=== PATIENT | female | born 1940 | race Caucasian/White ===

== ENCOUNTER 2016-08-30 06:29 | Observation (INO) ==
[2016-08-30] MEDS ORDERED: *HR* Heparin 10,000 UNIT/10 ML VIAL ONE (07:17)
[2016-08-30] MEDS ORDERED: Nitroglycerin 1,000 MCG/10 ML VIAL IV ONE (07:17)
[2016-08-30] MEDS ORDERED: Heparin 1,000 UNITS/500 mL NS 500 ML ONE (07:17)
[2016-08-30] MEDS ORDERED: Verapamil 5 MG/2 ML VIAL ONE (07:17)
[2016-08-30] MEDS ORDERED: 0.9 % Sodium Chloride 1,000 ML ONE (07:17)
[2016-08-30] MEDS: 0.9 % Sodium Chloride 1,000 ML IVC SCH ×2 (07:26→21:40)
[2016-08-30 07:30] LABS: INR 1.2; Prothrombin Time 12.7 Seconds (9.4-12.1)
[2016-08-30] MEDS ORDERED: *HR* Midazolam HCl 2 MG/2 ML VIAL ONE (08:13)
--- NOTE | 2016-08-30 08:22 | Pre-Sedation Evaluation ---
Pre-sedation evaluation - Pre-sedation checklist Date of procedure: 08/30/16 Procedure: [facility] Recent Vitals: Last Vital Signs Temp 98.1 F 08/30/16 06:48 Pulse 66 08/30/16 06:48 Resp 18 08/30/16 06:48 BP 191/82 08/30/16 06:48 Pulse Ox 96 08/30/16 06:48 H&P (including ROS) documented in medical record: Yes Previous reaction to sedatives/anesthetics: No Dietary Status: NPO after Midnight Dentition: No loose teeth or bridges ASA Classification *see protocol: CLASS II-Mild systemic disease Plan of Care: Pt appropriate candidate for procedure/moderate/conscious sedation , Risks/benefits of procedure/sedation discussed w/ patient/family
--- NOTE | 2016-08-30 08:28 | History & Physical Report ---
Date of Encounter: 08/30/16 Time of Encounter: 08:30 24 Hour HP Update - Instructions Instructions: If the History and Physical is less than 30 days old and was completed prior to A.M. admission and or procedure and has NOT been updated on calendar day of procedure please complete this update prior to performing procedure. - Update Patient reports changes in Medical Condition: No Changes in assessment/condition: No Changes in Medication: No Preop tests/diagnostics Reviewed: Yes Surgery Remains Indicated: Yes Consent for Planned Operative Procedure(s) Verified: Yes
[2016-08-30] MEDS ORDERED: *HR* Adenosine 6 MG/2 ML VIAL IVP ONE (08:43)
--- NOTE | 2016-08-30 09:23 | Invasive Diagnostic Lab Proc ---
Name: Seble Olvera Date of Study: 08/30/2016 Date: 1940 Ht: 60.0in Medical Record#: [id number] Age: 75 Wt: 139.33lb Gender: Female BSA: 1.6 Order #: [id number] BMI: 27.21 Physicians Procedure Physician: Chas Paredes MD, [facility] Referring MD: Abebe Cruz MD Referring MD: Staff Name Position Time In Juanita Mckeon RN Pre-Op Nurse Liv Romano RT (R) Recorder Leidy Govea RT (R) Scrub 08:22 AM Apryl Barker RN Lunchroom Monitor 08:22 AM Liv Romano RT (R) Monitor 08:22 AM Indications Indication Unstable Angina PAF Procedures Performed Procedure L HRT ARTERY/VENTRICLE ANGIO IV Doppler BLD Flow 1st Vessel Pre-Procedure Checklist Informed consent is complete signed and on chart. H\\T\\P is on chart. ID band is on and ID verified with patient. Patient NPO for procedure The procedure was described for the patient and questions were answered. Blood Pressure: 191/82 ECG is on chart. Rhythm: NSR Plan of Care Patient will tolerate the procedure without complications. Adequate level of comfort will be maintained. Hemodynamics will remain stable Patient will recover from procedure without complications. Respiratory function will be maintained. Cardiac rhythm will remain stable. Patient temperature will be maintained. Patient and/or family have verbalized understanding of the procedure. Patient Education Chief Complaint/Reason for Test: Cardiac Cath Developmental Category: Geriatric (65+ years) Developmentally Appropriate for Age: Yes Learning Barriers: None Education Needs: Procedure Education Method: Verbal Information Taught: Cardiac Cath Educational Evaluation: Able to repeat information Intravenous Access Time IV Size Location DC'd Fluid/Drip Rate Units RN 07:00 AM Started with 20g 1 1/4" Lt Antecubital 0.9NaCl 100 ml/hr Juanita Mckeon RN Allergies Opium (Anthroposophic) psuedoephedrine naproxen codeine Pseudoephedrine codiene opiods naprosyn pseuodophedrine Vital Signs Time BP (mmHg) HR (bpm) O2 Sat. RR (bpm) LOC 07:01 AM 191 / 82 66 97 % 20 5 = Fully awake and oriented or at pre-proc level 08:24 AM / % 5 = Fully awake and oriented or at pre-proc level 08:24 AM / % 4 = Oriented but drowsy 08:39 AM / % 4 = Oriented but drowsy 08:20 AM 165 / 98 70 100 % 08:25 AM 179 / 71 69 98 % 19 08:30 AM 181 / 71 72 99 % 29 08:35 AM 188 / 81 66 99 % 17 08:40 AM 164 / 77 71 99 % 18 08:45 AM 187 / 79 78 100 % 20 08:50 AM 144 / 90 86 98 % 22 08:55 AM 208 / 80 80 99 % 16 09:00 AM 189 / 74 93 99 % 17 09:05 AM 194 / 76 68 100 % 17 08:55 AM / % 4 = Oriented but drowsy Procedural Medications Time Medication Dose Units Method Given By 08:23 AM Oxygen 2 L/min nasal cannula Apryl Barker RN 08:23 AM Versed 2 mg Intravenous Apryl Barker RN 08:23 AM Fentanyl 50 mcg Intravenous Apryl Barker RN 08:30 AM Lidocaine 2% 0.5 ml Subcutaneous Chas Paredes MD, FACC 08:36 AM Lidocaine 2% 17 ml Subcutaneous Chas Paredes MD, FACC 08:47 AM Heparin 3000 units Intravenous Apryl Barker RN 08:55 AM Adenosine 400 mcg Intracoronary Chas Paredes MD, FACC 09:00 AM Hydralazine 10 mg Intravenous Apryl Barker RN ASA Classification: CLASS II- Mild systemic disease (i.e. well-controlled diabetes, hypertension, asthma, cigarette smoking) Capri Score Preprocedure Postprocedure Activity 2- Moves 4 extremities sustained head lift Activity 2- Moves 4 extremities sustained head lift Circulation 2- SBP +/= 20 points of pre-anesthetic level Circulation 2- SBP +/= 20 points of pre-anesthetic level Consciousness 2- Awake and alert oriented x 3 Consciousness 2- Awake and alert oriented x 3 O2 Saturation 2- Able to maintain O2 satruation of 92% on room air O2 Saturation 2- Able to maintain O2 satruation of 92% on room air Respiratory 2- Able to deep breathe and cough well Respiratory 2- Able to deep breathe and cough well Total Score 10 Total Score 10 Contrast Agent: Isovue Diagnostic Contrast: 59 ml Total Contrast: 59 ml Fluoro Dose: 5 mGy Activated Clotting Time Time Seconds to Clot 09:02 AM 271 Procedure Log Time Note Enter By 08:11 AM 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 tw 08:14 AM Procedure start 08:14 twilson 08:14 AM CathStat 08:19 AM Vitals capture started with the following parameters, Patient=Adult, Interval=5 min, Initial Delkfnbb=843 mmHg, Deflation Rate=5 mmHg, Cuff placed on Right Arm 08:20 AM HR=70 bpm, KIBO=713/98 mmhg, KmR3=012.0 %, Comment=NSR 08:22 AM Leidy Govea RT (R) Position: Scrub Time in: :22 08: AM Apryl Barker RN Position: Lunchroom Monitor Time in: :22 08:23 AM Liv Romano RT (R) Position: Monitor Time in: :22 :23 AM Patient charges- Angio tray pack, Navilyst 3mm J, Pulse Oximetry and ACIST tubing and transducer :23 AM IV Supplies used: J loop Angio Cath. :23 AM Hair removed from procedure site in holding area using clippers. Right wrist, right groin prepped with Chloraprep by Liv Romano RT (R) then patient draped. Skin intact. AM Time: 08:23 Oxygen on at 2 L/min per nasal cannula by Apryl Barker RN AM Time: 08:23 Versed 2 mg Intravenous Given by Apryl Barker RN [facility]23 AM Time: 08:23 Fentanyl 50 mcg Intravenous Given by Apryl Barker RN [facility]:24 AM ASA Class CLASS II- Mild systemic disease (i.e. well-controlled diabetes, hypertension, asthma, cigarette smoking) Time: 08:24 Patient comfortable and pain free: Yes 24 AM Time: 08:24LOC: 5 = Fully awake and oriented or at pre-proc level dsp:24 AM Clinical Presentation: Unstable angina dspell:25 AM Recorded ECG: HR=74 Condition=Condition 1 08:25 AM HR=69 bpm, HOZG=175/71 mmhg, SpO2=98.0 %, Resp=19 B/min, Comment=NSR 08:29 AM Pressure channel 1 zeroed. 08:29 AM Time out performed according to hospital policy dspell 08:30 AM HR=72 bpm, OPGB=232/71 mmhg, SpO2=99.0 %, Resp=29 B/min, Comment=NSR 08:30 AM Time: 08:30 0.5 ml Lidocaine 2% to right radial Subcutaneous Given by Chas Paredes MD, [facility] dspellman 08:32 AM Unsuccessful access attempt # 1 into the right Radial artery. Manual pressure applied to achieve hemostasis.. dspell 08:35 AM HR=66 bpm, RVWT=679/81 mmhg, SpO2=99.0 %, Resp=17 B/min, Comment=NSR 08:35 AM Unsuccessful access attempt # 2 into the right Radial artery. Manual pressure applied to achieve hemostasis.. dspell 08:36 AM Time: 08:36 17 ml Lidocaine 2% to right groin Subcutaneous Given by Chas Paredes MD, [facility] dspellman 08:37 AM Access obtained by percutaneous puncture. 5Fr 10cm Terum glide sheath placed in right Femoral artery. [id number] dspell 08:37 AM Micro-Introducer Kit utilized for sheath placement dspell 08:38 AM 5Fr FL 4 catheter inserted over the wire [facility] dspell 08:38 AM Recorded Pressure: Ao, HR=89, Condition=Condition 1 (Aorta) Ao 126/56/84 08:39 AM LCA angiography performed in multiple views. dspell 08:39 AM Recorded Pressure: Ao, HR=69, Condition=Condition 1 (Aorta) Ao 134/64/95 08:39 AM Time: 08:24 Patient comfortable and pain free: Yes dspellman 08:39 AM Time: 08:24LOC: 4 = Oriented but drowsy dspellman 08:39 AM Catheter removed dspell 08:40 AM 5Fr FR 4 catheter inserted over the wire [facility] dspellman 08:40 AM RCA angiography performed in multiple views. dspellman 08:40 AM Lesion found in Mid LAD. Pre Stenosis: 40 Pre SARAH Flow: dspellman 08:40 AM HR=71 bpm, QBZL=767/77 mmhg, SpO2=99.0 %, Resp=18 B/min, Comment=NSR 08:40 AM Lesion found in 1st Diagonal. Pre Stenosis: 70 Pre SARAH Flow: ell 08:41 AM Coronary Dominance: right dspell 08:41 AM Catheter removed dsp 08:41 AM 5Fr Pigtail catheter inserted over the wire [facility] 08:41 AM Catheter selectively placed in left ventricle dspell 08:41 AM Bolus angiogram of left Ventricle complete: 8 ml/sec for a total of 24 mls dspell 08:42 AM Pressure channel 1 zeroed. 08:42 AM Catheter removed dspell 08:43 AM Recorded Pressure: LV, HR=73, Condition=Condition 1 (Left Ventricle) LV 188/15/20 08:44 AM Recorded Pressure: LV, Ao, HR=79, Condition=Condition 1 (Left Ventricle) LV 172/12/14, (Aorta) Ao 170/52/108 08:45 AM [ Start FFR sample ] 08:45 AM HR=78 bpm, BMAP=889/79 mmhg, EpQ1=705.0 %, Resp=20 B/min, Comment=NSR 08:46 AM [ Start FFR sample ] 08:47 AM Pressure channel 3 zeroed. 08:47 AM Time: 08:47 Heparin 3000 units Intravenous Given by Apryl Barker RN Serrano pump dspell 08:48 AM 5Fr JR 4 Convey guide catheter was used to cannulate the PCI vessel successfully. reused? No dspell 08:48 AM Inflation device was opened. dspell 08:49 AM Pressure channel 3 equalization failed. 08:49 AM Pressure channel 3 equalized to channel 1. 08:49 AM Pressure channel 3 equalized to channel 1. 08:50 AM HR=86 bpm, LKKQ=559/90 mmhg, SpO2=98 %, Resp=22 B/min 08:50 AM [place] Prime Wire Prestige advanced to target lesion. dspellman 08:50 AM Pressure channel 3 equalization failed. 08:50 AM Pressure channel 3 equalization failed. 08:51 AM Pressure channel 3 equalized to channel 1. 08:53 AM Pressure channel 3 equalized to channel 1. 08:54 AM FFR: Value=0.87, Condition=Condition 1, Device=VOLCANO PRIME WIRE 08:54 AM Recorded Pressure: Ao, Wire, FFR=0.87, HR=96, Condition=Condition 1 (Aorta) Ao ?/?/?, (FFR Wire) Wire ?/?/? 08:55 AM Time: 08:39LOC: 4 = Oriented but drowsy dspell 08:55 AM Time: 08:39 Patient comfortable and pain free: Yes dspell 08:55 AM HR=80 bpm, EWII=660/80 mmhg, SpO2=99.0 %, Resp=16 B/min, Comment=NSR 08:56 AM Time: 08:55 Adenosine 400 mcg administered Intracoronary by Chas Paredes MD, [facility] dspell 08:56 AM FFR Measurement: 0.87 dspell 08:56 AM Flow Wire removed intact dspell 08:56 AM Procedure completed at 08:56 dspellman 08:58 AM Sign out completed: Radiation Dose 234.27 mGy Fluoro Time: 5.1 Isovue 370 - 200ml contrast 59 ml given by Chas Paredes MD, [facility]. Complications: NoneCardiac Rehab Consult needed: YesConfirmed administered medications: Yes dspell 08:58 AM Isovue 370 - 200ml,1 Bottle(s) used. dspell 08:58 AM Arterial sheath pulled, Mynx closure device used and was Successful [id number] S/N. dspell 08:58 AM Post ECG NSR dspell 08:59 AM Post Blood Pressure 208/80 dspellman 08:59 AM NIBP STAT measurement started. 08:59 AM 08:59 Post Pulses Bilateral DP \\T\\ PT 2+ dspell 08:59 AM 08:59 Post Pulses Rt Radial 2+ dspell 08:59 AM Information taught Cardiac Cath and Mynx dspell 09:00 AM HR=93 bpm, ENCV=660/74 mmhg, SpO2=99 %, Resp=17 B/min 09:01 AM Time: 09:00 Hydralazine 10 mg Intravenous Given by Apryl Barker RN 09:02 AM At 09:02 the ACT was 271 seconds. dspell 09:05 AM HR=68 bpm, YZRS=289/76 mmhg, AnS5=967.0 %, Resp=17 B/min, Comment=NSR 09:10 AM Lesion found in Proximal RCA. Pre Stenosis: 50 Pre SARAH Flow: dspell 09:10 AM Time: 08:55 Patient comfortable and pain free: Yes [facility]11 AM Time: 08:55LOC: 4 = Oriented but drowsy [place] 09:18 AM Patient out of room: 09:18 dspellman 09:18 AM Family placed in consult room. dspell 09:19 AM Complications: None [place] 09:19 AM Fluoro Time: 5.1 dspell 09:19 AM Isovue 370 - 200ml contrast 59 ml given by Chas Paredes MD, [facility]. [facility] 09:19 AM Radiation Dose 5.1 mGy [facility] Complications Complication None None Hemodynamics Pressures Site Systolic/A Wave Diastolic/V Wave Mean AO 126 56 84 AO 134 64 95 LV 188 15 20 LV 172 12 14 AO 170 52 108 AO Wire Post Procedure Information Blood Pressure: 208/80 mmHg Rhythm: NSR Post procedural instructions were given Closure Device Time Device Success/Fail 08/30/2016 9:08:00 AM MynxGrip Successful Site Checks Time Location Status Staff Sheath In? Note 09:17 AM Rt Groin No bleeding/ No Hematoma Leidy Govea RT (R) held pressure x 10 minutes, due to high BP Pulses Time Site Pre-Procedure Post-Procedure Note 08/30/2016 7:01:00 AM Bilateral DP \\T\\ PT 2+ 08/30/2016 7:01:00 AM Bilateral radial 2+ 8:59:00 AM Bilateral DP \\T\\ PT 2+ 8:59:00 AM Rt Radial 2+ Updated by Liv Romano RT (R) on 08/30/2016 9:19:38 AM Liv Romano RT electronically signed on 08/30/2016 9:20:18 AM with status of Final
[2016-08-30] MEDS ORDERED: *HR* FentaNYL (PF) 100 MCG/2 ML VIAL ONE (09:27)
[2016-08-30 10:54] LABS: Basophils % 0.2 %; Eosinophils # 0.1 K/mcL (0.0-0.6); Eosinophils % 2.3 %; Hematocrit 42.2 % (35.3-44.9); Hemoglobin 13.8 g/dL (11.5-15.4); Immature Granulocytes % 0.2 % (0-4); Lymphocytes # 1.2 K/mcL (0.6-4.6); Lymphocytes % 22.2 %; Mean Corpuscular HGB Conc 32.7 g/dL (31.6-35.5); Mean Corpuscular Hemoglobin 30.5 pg (28.0-33.3); Mean Corpuscular Volume 93.4 fL (83.0-100.0); Mean Platelet Volume 12.2 fL (9.4-12.4); Monocytes # 0.4 K/mcL (0.0-1.3); Neutrophils # 3.6 K/mcL (1.6-8.9); Platelet Count 140 K/mcL (140-400); Red Blood Count 4.52 M/mcL (3.82-4.97); Red Cell Distribution Width 12.8 % (11.5-14.5); Segmented Neutrophils % 67.1 %
[2016-08-30 11:05] LABS: BUN/Creatinine Ratio 13 (6-26); Blood Urea Nitrogen 11 mg/dL (7-20); Calcium 9.4 mg/dL (8.6-10.8); Carbon Dioxide 24 mEq/L (19-29); Chloride 105 mEq/L (98-109); Glucose 95 mg/dL (70-99); Osmolality,Calculated 289 (280-300); Potassium 3.7 mEq/L (3.5-4.5); Sodium 140 mEq/L (136-145); eGFR For African Americans > 60 (> 60); eGFR For Non-African Americans > 60 (> 60)
--- NOTE | 2016-08-30 11:16 | Event Note ---
Date of Encounter: 08/30/16 Time of Encounter: 11:11 - Cardiology Event Note Pt admitted for antiarrhythmic initiation for symptomatic PAF. [facility] today shows moderate CAD, nonobstructive without intervention. Creatinine clearance is 57. Discussed with EP, Dr. Jermain Mari, who recommends Sotalol 40mg [id number]. Will monitor renal function closely. EKGs 2 hours after each dose to monitor QTc < 500ms. Monitor for total of 5 doses. Current rhythm is sinus on tele. Anticoagulated on Coumadin, but was on hold for [facility]. INR today 1.2. Will resume Coumadin. Bridge with Lovenox until INR therapeutic for her PAF. If DCCV would be necessary, would require CASTRO since she had interruption in anticoagulation.
[2016-08-30] MEDS: Ipratropium 1 PUFF INHALER IH SCH ×3 (11:26→20:42)
--- NOTE | 2016-08-30 16:21 | Electrocardiograph Report ---
[facility] Test Date: 2016-08-30 Pat Name: Seble Olvera Department: 111 Room: 2NE23 Gender: F Manganese Wheeler: [facility] : 1940 Requested By: Mike Cohen Order Number: [id number] Reading MD: Faith Tejeda Measurements Intervals [place] Rate: 139 P: [place]: 0 QRS: 3 QRSD: 94 T: 244 QT: 254 QTc: 335 Interpretive Statements ATRIAL FIBRILLATION WITH RAPID VENTRICULAR RESPONSE ST DEVIATION AND MODERATE T-WAVE ABNORMALITY, CONSIDER ISCHEMIA Electronically Signed On 08-30-16 16:19:53 EST by Faith Tejeda
[2016-08-30] MEDS ORDERED: *HR* Warfarin 5 MG TABLET PO SCH (18:00)
[2016-08-30] MEDS ORDERED: Warfarin perPT PO PRN (18:00)
[2016-08-30] MEDS: *HR* Enoxaparin 60 MG/0.6 ML SYRINGE SQ SCH (18:43)
[2016-08-30] MEDS: Ranolazine 500 MG TAB.ER.12H PO SCH (21:38)
[2016-08-30] MEDS: Famotidine 20 MG TABLET PO SCH (21:38)
[2016-08-31] MEDS: Ipratropium 1 PUFF INHALER IH SCH ×4 (03:33→21:17)
[2016-08-31 05:50] LABS: Basophils % 0.5 %; Eosinophils # 0.1 K/mcL (0.0-0.6); Eosinophils % 1.7 %; Hematocrit 38.9 % (35.3-44.9); Hemoglobin 12.6 g/dL (11.5-15.4); Immature Granulocytes % 0.3 % (0-4); Lymphocytes # 1.5 K/mcL (0.6-4.6); Lymphocytes % 24.7 %; Mean Corpuscular HGB Conc 32.4 g/dL (31.6-35.5); Mean Corpuscular Hemoglobin 30.3 pg (28.0-33.3); Mean Corpuscular Volume 93.5 fL (83.0-100.0); Mean Platelet Volume 12.3 fL (9.4-12.4); Monocytes # 0.6 K/mcL (0.0-1.3); Monocytes % 10.2 %; Neutrophils # 3.7 K/mcL (1.6-8.9); Platelet Count 122 K/mcL (140-400); Red Blood Count 4.16 M/mcL (3.82-4.97); Red Cell Distribution Width 13.2 % (11.5-14.5); Segmented Neutrophils % 62.6 %
[2016-08-31 05:51] LABS: INR 1.2; Prothrombin Time 12.6 Seconds (9.4-12.1)
[2016-08-31] MEDS: *HR* Enoxaparin 60 MG/0.6 ML SYRINGE SQ SCH ×2 (06:12→17:51)
[2016-08-31 06:15] LABS: BUN/Creatinine Ratio 12 (6-26); Blood Urea Nitrogen 10 mg/dL (7-20); Calcium 8.9 mg/dL (8.6-10.8); Carbon Dioxide 21 mEq/L (19-29); Chloride 111 mEq/L (98-109); Glucose 96 mg/dL (70-99); Osmolality,Calculated 289 (280-300); Sodium 140 mEq/L (136-145); eGFR For African Americans > 60 (> 60); eGFR For Non-African Americans > 60 (> 60)
[2016-08-31] MEDS: Ranolazine 500 MG TAB.ER.12H PO SCH ×2 (08:30→20:41)
[2016-08-31] MEDS: Famotidine 20 MG TABLET PO SCH ×2 (08:30→20:41)
[2016-08-31] MEDS: Isosorbide MONOnitrate (24 HR) 30 MG TAB.ER.24H PO SCH (08:30)
[2016-08-31] MEDS: Lisinopril 20 MG TABLET PO SCH (08:30)
[2016-08-31] MEDS: 0.9 % Sodium Chloride 1,000 ML IVC SCH ×2 (08:31→18:50)
--- NOTE | 2016-08-31 10:36 | Cardiology Progress Note ---
Date of Encounter: 08/31/16 Time of Encounter: 10:34 Assessment and Plan (1) PAF (paroxysmal atrial fibrillation) Current Visit: Yes Status: Acute Sotalol inititation--40mg BID. Monitor for total of 5 doses with EKGs 2 hours after each dose. Baseline EKG 08/30/16 SR rate 88, QT/QTc 328/372 Shortly after baseline EKG went into A-Fib, EKG obtained showed QT/QTc 254/335 S/P 1st dose EKG SR 69 QT/QTc 396/414. 5th dose will be tomorrow AM. Will transition to 80mg daily at discharge-- renally dosing since creatinine clearance is usually <60. Anticipate discharge tomorrow. (2) Encounter for monitoring anti-arrhythmic therapy Current Visit: Yes Status: Acute Plan as above--Sotalol 40mg BID, transition to 80mg daily at D/C--renally dosing since creatinine clearance <60. (3) CAD (coronary artery disease) Current Visit: Yes Status: Acute Moderate CAD on LHC yesterday, no intervention necessary. ASA, Statin, BB, Imdur. Qualifiers: Coronary Disease-Associated Artery/Lesion type: [place] artery [place] vs. transplanted heart: [place] heart Associated angina: without angina Qualified Code(s): I25.10 - Atherosclerotic heart disease of [place] coronary artery without angina pectoris (4) Essential hypertension Current Visit: Yes Status: Acute Elevated with systolic pressure 180s this AM. Will add Norvasc. Continue Lisinopril. Discussion w patient/family: The assessment and plan as outlined above was discussed with the patient and/or family members who expressed understanding and agreement. All questions were answered. Thank you for involving us in the care of your patient. Please call with any questions. I will discuss all the above with Dr. Lowe and Dr. Jermain Mari and make changes as necessary. Subjective Principal diagnosis: PAF, moderate CAD Interval history: Pt had LHC yesterday--showed moderate vessel CAD. She was admitted for Sotalol initiation--40mg BID with plans to transition to 80mg daily at discharge. Needs decreased dosing due to creatinine clearance <60. Pt was in A-Fib briefly yesterday prior to starting Sotalol. Since starting Sotalol she has remained in SR. Renal function improved s/p LHC. She denies any complaints. QTc remains < 500ms. She has received 2 doses of Sotalol. Objective Vital Signs, Last 4 Hours Temp Pulse Resp BP Pulse Ox 08/31/16 08:37 95 08/31/16 07:35 98.8 F 58 16 182/74 95 Vital Signs Temp Pulse Resp BP Pulse Ox 08/31/16 08:37 95 08/31/16 07:35 98.8 F 58 16 182/74 95 08/31/16 05:00 98.7 F 62 16 180/67 94 L 08/31/16 03:33 14 96 08/31/16 01:00 98.6 F 62 16 153/53 96 08/30/16 21:45 98.0 F 79 16 165/66 97 08/30/16 20:42 16 96 08/30/16 16:22 15 97 08/30/16 16:06 98.3 F 61 15 145/67 96 08/30/16 11:30 15 164/68 97 08/30/16 11:06 98.3 F 88 15 164/68 97 Intake and Output 08/30/16 08/31/16 08/31/16 23:59 07:59 15:59 Intake Total 1440 / 1440 0 / 0 1500 / 1500 Output Total 1400 / 1400 Balance 40 / 40 0 / 0 1500 / 1500 Intake: IV Fluids 1000 / 1000 1000 / 1000 0.9 % Sodium Chloride 1, 1000 / 1000 1000 / 1000 000 ML @ 100 mls/hr IVC . Q10H CASSI Rx#:[id number] Oral 440 / 440 0 / 0 500 / 500 Output: Urine 1400 / 1400 Other: Meal Dinner Breakfast Percent of Meal Consumed 80% 100% # Voids 0 Weight 64.4 kg Patient Weight 08/31/16 23:59 Weight 64.4 kg General: Conversant, No Apparent Distress HEENT: Atraumatic, Normocephaly, Mucus Membranes Moist Neck: No JVD, Normal carotid pulses Cardiac: Reg Rate and Rhythm, Normal S1 and S2, No Murmur Lungs: Normal Breath Sounds, No Wheeze, Rales, Rhonchi Neuro: Alert and responsive, No focal deficits noted Abdomen: Soft, Non-Tender Skin: Other (left femoral access site healing well-no bleeding, hematoma or ecchymosis noted.) Musculoskeletal: No Chest Wall Tenderness Extremities: No Clubbing, No Cyanosis, No Edema, Normal Pulses Results 08/31/16 05:24 08/31/16 05:24 Lab Results 08/30/16 08/30/16 08/31/16 10:41 10:41 05:24 WBC 5.3 5.9 Hgb 13.8 12.6 Hct 42.2 38.9 Plt Count 140 122 L INR Sodium 140 Potassium 3.7 Chloride 105 Carbon Dioxide 24 BUN 11 Creatinine 0.87 Glucose 95 Calcium 9.4 08/31/16 08/31/16 05:24 05:24 WBC Hgb Hct Plt Count INR 1.2 Sodium 140 Potassium 4.0 Chloride 111 H Carbon Dioxide 21 BUN 10 Creatinine 0.81 Glucose 96 Calcium 8.9 Short CBC 08/31/16 08/30/16 Range/Units 05:24 10:41 WBC 5.9 5.3 (4.3-11.1) K/mcL Hgb 12.6 13.8 (11.5-15.4) g/dL Hct 38.9 42.2 (35.3-44.9) % Plt Count 122 L 140 (140-400) K/mcL Neutrophils # 3.7 3.6 (1.6-8.9) K/mcL BMP 08/31/16 08/30/16 Range/Units 05:24 10:41 Sodium 140 140 (136-145) mEq/L Potassium 4.0 3.7 (3.5-4.5) mEq/L Chloride 111 H 105 (98-109) mEq/L Carbon Dioxide 21 24 (19-29) mEq/L BUN 10 11 (7-20) mg/dL Creatinine 0.81 0.87 (0.57-1.11) mg/dL Glucose 96 95 (70-99) mg/dL Calcium 8.9 9.4 (8.6-10.8) mg/dL Active Medications Albuterol Sulfate (Albuterol Inhaler) 2 puff IH Q4HR PRN PRN Reason: Shortness Of Breath Stop: 03/01/17 10:55 Atorvastatin Calcium (Lipitor) 40 mg PO HS CASSI Stop: 03/01/17 21:01 Last Admin: 08/30/16 21:38 Dose: 40 mg Enoxaparin Sodium (Lovenox) 60 mg 1 mg/kg (60 mg) SQ Q12HR CASSI PRN Reason: Protocol Stop: 03/01/17 18:01 Last Admin: 08/31/16 06:12 Dose: 60 mg Famotidine (Pepcid) 10 mg PO BID CASSI PRN Reason: Protocol Stop: 03/01/17 21:01 Last Admin: 08/31/16 08:30 Dose: 10 mg Sodium Chloride (0.9 % Sodium Chloride) 1,000 mls @ 100 mls/hr IVC .Q10H CASSI Stop: 03/01/17 07:01 Last Admin: 08/31/16 08:31 Dose: 100 mls/hr Ipratropium [place] (Atrovent Inhaler) 2 puff IH [id number] [facility] Stop: 03/01/17 11:01 Last Admin: 08/31/16 03:33 Dose: 2 puff Isosorbide Mononitrate (Imdur) 30 mg PO DAILY [facility] Stop: 03/02/17 09:01 Last Admin: 08/31/16 08:30 Dose: 30 mg Lisinopril (Zestril) 40 mg PO DAILY [facility] Stop: 03/02/17 09:01 Last Admin: 08/31/16 08:30 Dose: 40 mg Ranolazine (Ranexa) 500 mg PO BID [facility] Stop: 03/01/17 21:01 Last Admin: 08/31/16 08:30 Dose: 500 mg Sotalol HCl (Betapace) 40 mg PO Q12H [facility] Stop: 03/01/17 11:31 Last Admin: 08/30/16 23:06 Dose: 40 mg Warfarin Sodium (Coumadin Perpt) 1 each PO DAILY@1800 PRN PRN Reason: SEE COMMENTS Stop: 03/01/17 18:01 Warfarin Sodium (Coumadin) 5 mg PO MOTH [facility] Stop: 03/01/17 18:01 Last Admin: 08/30/16 18:43 Dose: 5 mg Warfarin Sodium (Coumadin) 3.75 mg PO SUTUWEFRSA [facility] Stop: 03/02/17 18:01 - Imaging and Cardiology Cardiac cath: report reviewed - EKG Interpretation EKG results cardiology: other (12 hour tele AVG HR 63, SR.) - VTE Reasons for not Prescribing Prophylaxis: Not indicated-Anticoagulated or INR therapeutic Consult Discharge Plan - Plan Referrals: Abebe Cruz Jr, MD [Primary Care Provider] -
[2016-08-31] MEDS: amLODIPine 5 MG TABLET PO SCH (11:28)
[2016-08-31] MEDS ORDERED: *HR* Warfarin 2.5 MG TABLET PO SCH (18:00)
--- NOTE | 2016-08-31 21:08 | Electrocardiograph Report ---
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
--- NOTE | 2016-08-31 21:28 | Electrocardiograph Report ---
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
--- NOTE | 2016-08-31 21:32 | Electrocardiograph Report ---
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
[2016-09-01] MEDS: Ipratropium 1 PUFF INHALER IH SCH ×2 (03:47→10:27)
[2016-09-01] MEDS: *HR* Enoxaparin 60 MG/0.6 ML SYRINGE SQ SCH (05:20)
[2016-09-01] MEDS: 0.9 % Sodium Chloride 1,000 ML IVC SCH (05:21)
[2016-09-01 06:01] LABS: INR 1.2
[2016-09-01 06:16] LABS: BUN/Creatinine Ratio 13 (6-26); Blood Urea Nitrogen 11 mg/dL (7-20); Calcium 8.8 mg/dL (8.6-10.8); Carbon Dioxide 22 mEq/L (19-29); Chloride 110 mEq/L (98-109); Glucose 100 mg/dL (70-99); Osmolality,Calculated 295 (280-300); Potassium 3.8 mEq/L (3.5-4.5); Sodium 143 mEq/L (136-145); eGFR For African Americans > 60 (> 60); eGFR For Non-African Americans > 60 (> 60)
[2016-09-01] MEDS: Isosorbide MONOnitrate (24 HR) 30 MG TAB.ER.24H PO SCH (08:20)
[2016-09-01] MEDS: Famotidine 20 MG TABLET PO SCH (08:20)
[2016-09-01] MEDS: Ranolazine 500 MG TAB.ER.12H PO SCH (08:20)
[2016-09-01] MEDS: amLODIPine 5 MG TABLET PO SCH (08:20)
[2016-09-01] MEDS: Lisinopril 20 MG TABLET PO SCH (08:20)
[2016-09-01] MEDS ORDERED: Aspirin 81 MG TAB.CHEW PO SCH (09:00)
[2016-09-01] MEDS ORDERED: amLODIPine 5 MG TABLET PO ONE (09:49)
--- NOTE | 2016-09-01 09:53 | Discharge Summary ---
Date of Encounter: 09/01/16 Time of Encounter: 09:50 - Discharge Diagnosis (1) PAF (paroxysmal atrial fibrillation) Priority: Primary Status: Acute Comments: Sotalol inititation--40mg BID. Pt has been monitored for total of 5 doses with EKGs 2 hours after each dose. QTc has remained <500ms. She was started at a lower dose due to creatinine clearance being <60 in the past. She has maintained sinus rhythm on 40mg Sotalol BID without complaints or side effects. Renal function has actually improved while inpt and creatinine clearance now >60. Discussed with Dr. Jermain Mari. D/C home on Sotalol 40mg BID since she is maintaining SR. If she were to have recurrent PAF, could check renal function and if creatinine clearance continues to be >60, could increase Sotalol. If <60 , would need to switch to a different antiarrhythmic. Anticoagulated on Coumadin--INR 1.2. Coumadin was held prior to LHC and has since been resumed. Bridging not necessary at discharge since she is maintaining SR. Follow-up with [facility] as planned on Tuesday for further instructions. Pt being discharged home in stable condition. Follow-up with Dr. Paredes in 2-3 weeks. (2) Encounter for monitoring anti-arrhythmic therapy Priority: Primary Status: Acute Comments: Plan as above. (3) CAD (coronary artery disease) Priority: Secondary Status: Acute Comments: Moderate CAD on LHC, no intervention necessary. ASA, Statin, BB, Imdur. Qualifiers: Coronary Disease-Associated Artery/Lesion type: [place] artery [place] vs. transplanted heart: [place] heart Associated angina: without angina Qualified Code(s): I25.10 - Atherosclerotic heart disease of [place] coronary artery without angina pectoris (4) Essential hypertension Priority: Secondary Status: Acute Comments: Norvasc added during inpt stay due to pt being hypertensive. Continue Lisinopril. Pt instructed to keep BP log at home. - Discharge Medications Prescriptions: Amlodipine [Norvasc] 10 mg PO DAILY #30 tablet Aspirin 81 mg PO DAILY #30 tab.chew Sotalol [Betapace] 40 mg PO Q12H #30 tablet Home Medications: Albuterol Sulfate [Albuterol Inhaler] 2 puff IH Q4HR PRN 08/30/16 [History] Atorvastatin [Lipitor] 40 mg PO HS 08/30/16 [History] Carvedilol 6.25 mg PO DAILY 08/30/16 [History] Famotidine [Pepcid] 20 mg PO BID 08/30/16 [History] Ipratropium [ATROVENT Inhaler] 2 puff PO Q6H 08/30/16 [History] Isosorbide MONOnitrate (24 HR) [Imdur] 30 mg PO DAILY 08/30/16 [History] Lisinopril [Zestril] 40 mg PO DAILY 08/30/16 [History] Nitroglycerin 0.4 mg PO Q5M PRN 08/30/16 [History] Ranolazine [Ranexa] 500 mg PO BID 08/30/16 [History] Torsemide 5 mg PO BID 08/30/16 [History] Warfarin [Coumadin] 3.75 mg PO SUTUWEFRSA 08/30/16 [History] Warfarin [Coumadin] 5 mg PO MOTH 08/30/16 [History] Amlodipine [Norvasc] 10 mg PO DAILY #30 tablet 09/01/16 [Rx] Aspirin 81 mg PO DAILY #30 tab.chew 09/01/16 [Rx] Sotalol [Betapace] 40 mg PO Q12H #30 tablet 09/01/16 [Rx] Allergies/Adverse Reactions: Allergies codeine Allergy (Verified 08/30/16 07:09) See Comments *patient states vomiting, lip tingling, shortness of breath naproxen Allergy (Verified 08/30/16 07:09) See Comments *patient states vomiting, lip tingling, shortness of breath Opium (Anthroposophic) Allergy (Verified 08/30/16 07:09) See Comments *patient states vomiting, lip tingling, shortness of breath psuedoephedrine Allergy (Uncoded 08/30/16 07:09) See Comments *patient states vomiting, lip tingling, shortness of breath Procedures/tests Complete & Pending: Procedures Performed prior 72 hours Category Date Time Status CL Cardiac Catheterization [CL] Routine Rfid Manager 08/30/16 06:47 Ordered ECG 12 lead ECG [ECG] Routine Y 08/30/16 09:21 Completed ECG 12 lead ECG [ECG] Routine Y 08/30/16 14:20 Completed ECG 12 lead ECG [ECG] Routine Y 08/31/16 13:55 Completed EKG [ECG 12 lead ECG] [ECG] Routine Y 08/31/16 01:30 Completed EKG [ECG 12 lead ECG] [ECG] Stat Y 08/30/16 10:59 Completed Date of admission: 08/30/16 11:32 Primary care physician: Abebe Cruz Jr, MD Consults: 08/30/16 09:21 Consult to Cardiac Rehabilitation-Phase1 [CONS] Routine Comment: Reason for Consult: post op cath Call Completed: Yes Discharging clinician: Mike Cohen Anticipated date of discharge: 09/01/16 - Patient Status Disposition: Home, Self-Care Condition: Good Functional capacity at discharge: independent ambulation Overall status at discharge: patient is back to baseline - Discharge Instructions Follow Up With: Abebe Cruz Jr, MD [Primary Care Provider] - - Diet and Activity Activity: increase activity as tolerated Diet: advance to your usual diet - Hospital Course Hospital course: Ms. Olvera is a 75 year old female admitted for antiarrhythmic initiation for symptomatic PAF. LHC on day of admission showed moderate CAD, nonobstructive without intervention. Sotalol inititated--40mg BID. Pt has been monitored for total of 5 doses with EKGs 2 hours after each dose. QTc has remained <500ms. She was started at a lower dose due to creatinine clearance being <60 in the past. She has maintained sinus rhythm on 40mg Sotalol BID without complaints or side effects. Renal function has actually improved while inpt and creatinine clearance now >60, 62. Discussed with Dr. Jermain Mari. D/C home on Sotalol 40mg BID since she is maintaining SR. If she were to have recurrent PAF, could check renal function and if creatinine clearance continues to be >60, could increase Sotalol. If <60, would need to switch to a different antiarrhythmic. Anticoagulated on Coumadin--INR 1.2. Coumadin was held prior to [facility] and has since been resumed. Bridging not necessary at discharge since she is maintaining SR. Follow-up with Coumadin Clinic as planned on Tuesday for further instructions. Pt being discharged home in stable condition.Follow-up with Dr. Paredes in 2-3 weeks. - Time Spent with Patient Total time spent providing and/or coordinating discharge services: 30 minutes Physical Examination Vital Signs, Last 4 Hours Temp Pulse Resp BP Pulse Ox 09/01/16 07:37 98.5 F 56 15 171/72 98 Vital Signs Temp Pulse Resp BP Pulse Ox 09/01/16 10:28 15 98 09/01/16 09:00 98 09/01/16 07:37 98.5 F 56 15 171/72 98 09/01/16 04:00 98.1 F 61 16 149/70 95 09/01/16 03:47 16 98 09/01/16 00:20 98.4 F 65 16 150/70 97 08/31/16 22:24 70 16 95 08/31/16 21:18 16 97 08/31/16 20:00 98.2 F 68 20 172/73 95 08/31/16 16:36 18 97 08/31/16 15:57 98 F 66 16 158/70 97 08/31/16 11:58 98.5 F 60 16 138/63 94 L 08/31/16 11:10 18 98 Intake and Output 08/31/16 09/01/16 09/01/16 23:59 07:59 15:59 Intake Total 1120 / 1120 1600 / 1600 120 / 120 Output Total 500 / 500 2900 / 2900 Balance 620 / 620 -1300 / -1300 120 / 120 Intake: IV Fluids 1000 / 1000 1000 / 1000 0.9 % Sodium Chloride 1, 1000 / 1000 1000 / 1000 000 ML @ 100 mls/hr IVC . Q10H [facility] Rx#:[id number] Oral 120 / 120 600 / 600 120 / 120 Output: Urine 500 / 500 2900 / 2900 Other: Meal Dinner Breakfast Percent of Meal Consumed 25% 100% Weight 64.7 kg Patient Weight 09/01/16 23:59 Weight 64.7 kg General: Conversant, No Apparent Distress HEENT: Atraumatic, Normocephaly, Mucus Membranes Moist Neck: No JVD, Normal carotid pulses Cardiac: Reg Rate and Rhythm, Normal S1 and S2, No Murmur Lungs: Normal Breath Sounds, No Wheeze, Rales, Rhonchi Neuro: Alert and responsive, No focal deficits noted Abdomen: Soft, Non-Tender Skin: No rashes noted on visualized skin Musculoskeletal: No Chest Wall Tenderness Extremities: No Clubbing, No Cyanosis, No Edema, Normal Pulses - VTE Reasons for not Prescribing Prophylaxis: Not indicated-Anticoagulated or INR therapeutic
[2016-09-01 12:03] VITALS: BP 160/70
[2016-09-01] MEDS ORDERED: *HR* Warfarin 5 MG TABLET PO ONE (18:00)
--- NOTE | 2016-09-02 08:03 | Electrocardiograph Report ---
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
[2016-09-02] MEDS ORDERED: amLODIPine 5 MG TABLET PO SCH (09:00)
--- NOTE | 2016-09-02 10:47 | Invasive Diagnostic Lab ---
Name: Seble Olvera Date of Study: 08/30/2016 Date: 1940 Ht: 152.4 cm /60.0 in Medical Record#: [id number] Age: 75 Wt: 63.2 kg / 139.33 lb Account/Order#: [id number] Gender: Female BSA: 1.6 Order #: [id number] Fluoro Dose: 5 mGy BMI: 27.21 Procedure Physician: Chas Paredes MD, FACC Referring MD: Abebe Cruz MD Referring MD: Procedures Performed: LEFT HEART CATH IV Doppler BLD Flow 1st Vessel MOD SED OTH PHYS/QHP 5/>YRS MOD SED OTHER PHYS/QHP EA Indications: Unstable Angina, PAF Impressions: Moderate atherosclerotic coronary artery disease. The left ventricle is normal and has normal contractility EF 65% FFR Measurement: 0.87 Recommendations: Optimal medical therapy of patient's disease. Aggressive risk factor modification. History/Risk Factors: GERD Asthma Vertigo Paroxysmal A-Fib Hypertension Dyslipidemia Family History of CAD Procedure Access obtained in the right Femoral artery by percutaneous puncture A pressure tipped wire was advanced through the catheter into the RCA. Measurements of FFR were made during hyperemia induced by intracoronary adenosine. FFR Measurement 0.87 Complications: None, None Contrast: Isovue 59ml Closure Device: MynxGrip Hemodynamics: Pressures Site Systolic/ A Wave Diastolic/ V Wave End Diastolic/ Mean HR AO 126 56 84 89 AO 134 64 95 69 LV 188 15 20 73 LV 172 12 14 75 AO 170 52 108 82 AO 0 Wire 0 LV Ventriculography Ejection Method: LV Gram Ejection Fraction: 65% Wall Motion: JESSICA Anterobasal Normal Anterolateral Normal Apical: Normal Inferoapical Normal Inferobasal Normal Coronary Dominance: right Lesion Findings/Interventions * Left Main Coronary Artery The LMCA is angiographically free of disease. * Left Anterior Descending There is a 40% stenosis in the Mid LAD. The distal LAD is described as small vessel. There is a 70% stenosis in the 1st Diagonal. This lesion is further described as small vessel. * Circumflex The Circumflex is angiographically free of disease. The 1st Marginal is angiographically free of disease. * Right Coronary Artery There is a 50% stenosis in the Proximal RCA. FFR not significant Updated by Chas Paredes MD, FACC on 09/02/2016 10:40:15 AM Chas Paredes MD, FACC electronically signed on 09/02/2016 10:41:14 AM with status of Final
--- NOTE | 2016-09-03 15:25 | Electrocardiograph Report ---
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
--- NOTE | 2016-09-07 15:29 | Electrocardiograph Report ---
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
== END 2016-09-01 14:10 | disposition home or self-care (01) ==
LOC: INVDIALAB 06:29 → 2NENU 06:29
PROVIDERS: ADMIT Emergency Medicine; ATTEND Emergency Medicine

== ENCOUNTER 2019-04-21 18:45 | Observation (INO) ==
--- NOTE | 2019-04-21 19:19 | Emergency Department Note ---
Disposition Clinical Impression: Chigger bites CVA (cerebral vascular accident) Qualifiers: CVA mechanism: unspecified Qualified Code(s): I63.9 - Cerebral infarction, u nspecified Disposition: Admitted As Inpatient Condition: Fair Time of Disposition: 21:54 Neuro HPI - General Chief Complaint: ED Neuro Symptoms/Deficit Stated Complaint: Neuro symptoms Time Seen by Provider: 04/21/19 19:00 Source: patient Mode of arrival: private vehicle Limitations: no limitations Nursing Notes Reviewed: Yes Vital Signs Reviewed: Yes - History of Present Illness HPI Narrative: 78F with Pmhx of Afib treated with ablation and on eliquis and HTN on amniodarone that reports right arm, leg, and lip numbness that started around 1300 today while she was walking around a store. She states her symptoms lasted about 15 minutes and then went away. She reports they came back at some point later in the day and did not last very long. She sought medical care after her son encouraged her. She also reports a rash on the anterior aspect of her RLE that has been present since Tuesday, which is also on the posterior aspect of her LLE. She also reports similar neuro symptoms that happened to her approx 5-6 days ago. She denies any hx of stroke, or similar symptoms before 5-6 days ago. She does report an increase in her amnio dose on 03/12/19 because her HTN was not well controlled. She reports lightheadedness with the new dose, so she has been cutting it in half. - Related Data Home Medications: Home Medications Medication Instructions Recorded Confirmed Albuterol Sulfate [Proventil 2 puff IH Q6H PRN 08/30/16 04/21/19 Inhaler] Ipratropium [ATROVENT Inhaler] 2 puff IH Q6H PRN 08/30/16 04/21/19 Isosorbide MONOnitrate (24 HR) 30 mg PO DAILY 08/30/16 04/21/19 [Imdur] Lisinopril [Zestril] 40 mg PO HS 08/30/16 04/21/19 Nitroglycerin 0.4 mg PO Q5MIN PRN 08/30/16 04/21/19 Amlodipine Besylate 5 mg PO BID 04/21/19 04/21/19 Apixaban [Eliquis] 5 mg PO BID 04/21/19 04/21/19 Previous Rx's Medication Instructions Recorded Aspirin 81 mg PO DAILY #30 tab.chew 09/01/16 Sotalol [Betapace] 40 mg PO Q12H #30 tablet 09/01/16 Allergies/Adverse Reactions: Allergies Allergy/AdvReac Type Severity Reaction Status Date / Time codeine Allergy See Verified 03/31/18 16:33 Comments naproxen Allergy See Verified 03/31/18 16:33 Comments opium (anthroposophic) Allergy See Verified 03/31/18 16:33 [Opium (Anthroposophic)] Comments psuedoephedrine Allergy See Uncoded 08/30/16 07:09 Comments Review of Systems: In addition to that documented in the HPI above, the additional ROS was obtained: Constitutional: Denies fevers or chills Eyes: Denies vision changes ENMT: Denies sore throat Reports rhinorrhea CV: Denies chest pain Resp: Denies SOB GI: Denies vomiting or diarrhea MSK: Denies recent trauma Skin: Reports new rash on the anterior aspect of RLE and posterior aspect of LLE Neuro: Reports transient RUE/RLE and facial numbness over the last 5-6 days that has happened 3x Past Medical History - Past Medical History Attestation: Yes The following information was validated with the patient. Medical history: Reports: asthma, atrial fibrillation, hyperlipidemia, hypertension Surgical history: Reports: hysterectomy Psychiatric history: Reports: no psych history - Social History Smoking Status: Former smoker Smokeless Tobacco Status: No Alcohol use: Reports: none Drug use: Reports: none Physical Exam General: A&O x 3 - person, place, time. No acute distress. Well developed, well nourished. Head: atraumatic, normocephalic. ENT: No conjunctival injection, no scleral icterus. PERRLA. EOMI. Oropharynx non- erythematous. mucous membranes moist. Neuro: No focal deficits, no speech deficit, no facial droop, mentating well. BUE/BLE Str 5/5. James UE/LE sensation intact. CN II-XII intact. Cerebellar testing with [id number] intact. Pulm: Lungs CTAB A/P. No wheezes, rales, ronchi. Cardio: RRR no m/r/g. Chest not tender to palpation. Abd: Soft, non-distended. Normoactive bowel sounds. Non-tender to palpation. No guarding. Non rigid. Extremities: Radial pulses 2+ james, dorsalis pedis/posterior tibialis 2+ james. No LE edema. No cyanosis, clubbing. Skin: There is petechiae on james LE that patient reports has been present for a long time and was told by Dr. Cruz that there is nothing to worry about. She also has a raised, maculo-papular erythematous rash that is coalescing into a plaque present on the anterior aspect of her R lower leg, in an area approx 10cm x 5cm. There is also a much smaller area of the same rash on the posterior aspect of her L lower leg, in an area approx [id number]. Psych: Appropriate mood and affect. Answers questions appropriately. Cooperative with exam. - General Limitations: no limitations General appearance: alert Course - Consultations Consultation #1: Spoke with Dr. Hameed, Neurology, who states that he would like the patient's Eliquis to be held, start her on low dose heparin, and admit to hospitalist. He requested CTA of Head and Neck as well, but this had already been done. Time: 21:28 Vital Signs Temperature 98.1 F 04/21/19 18:53 Pulse Rate 70 04/21/19 18:53 Respiratory Rate 18 04/21/19 18:53 Blood Pressure 178/79 04/21/19 18:53 O2 Sat by Pulse Oximetry 98 04/21/19 18:53 Temperature 97.7 F 04/22/19 03:10 Pulse Rate 66 04/22/19 03:10 Respiratory Rate 16 04/22/19 03:10 Blood Pressure 157/74 04/22/19 03:10 O2 Sat by Pulse Oximetry 95 04/22/19 03:10 Oxygen Delivery Oxygen Delivery Room Air Neuro Symptoms/Deficit - MDM Narrative Medical decision making narrative: 78-year-old female with a past medical history of atrial fibrillation that is well controlled after an ablation on Eliquis, as well as hypertension on amiodarone that reports transient numbness of her right arm, leg, face. She does not have any symptoms now an NIH score is a 0. We will obtain stroke workup labs including head CT and admit for further neurologic workup. Patient was admitted to the hospitalist, Dr Cobb, for further workup and treatment. Results of the workup including any imaging and/or labwork was shared with the patient at bedside. Patient was given an opportunity to ask questions at bedside and all of their concerns were addressed. Patient verbalized understanding and agreement with plan of care. Pt remained stable while in the department. - Medical Records Medical records reviewed: Yes I reviewed the patient's medical records. - Lab Data Lab results reviewed: Yes I reviewed the patient's lab results. Result diagrams: 04/21/19 19:22 04/21/19 19:22 Lab Results 04/21/19 04/21/19 04/21/19 Range/Units 18:59 19:13 19:22 WBC 7.2 (4.3-11.1) K/mcL RBC 4.35 (3.82-4.97) M/mcL Hgb 13.4 (11.5-15.4) g/dL Hct 41.3 (35.3-44.9) % MCV 94.9 (83.0-100.0) fL MCH 30.8 (28.0-33.3) pg MCHC 32.4 (31.6-35.5) g/dL RDW 12.9 (11.5-14.5) % Plt Count 154 (140-400) K/mcL MPV 11.9 (9.4-12.4) fL PT (9.4-12.1) Seconds INR APTT (26.0-36.0) Seconds Heparin Anti-Xa, Unfract (0.30-0.70) IU/mL Sodium (136-145) mEq/L Potassium (3.5-5.1) mEq/L Chloride (98-107) mEq/L Carbon Dioxide (23-29) mEq/L BUN (8-23) mg/dL Creatinine (0.60-1.20) mg/dL Est GFR ( Amer) (> 60) Est GFR (Non-Af Amer) (> 60) BUN/Creatinine Ratio (6-26) Glucose (70-105) mg/dL POC Glucose 89 (70-99) mg/dL Calculated Osmolality (280-300) Calcium (8.6-10.3) mg/dL Troponin I (< 0.04) ng/mL Urine Color Yellow (Yellow) Urine Clarity Clear (Clear) Urine pH 7.0 (5.0-8.0) pH Units Ur Specific [place] 1.011 (1.010-1.025) Urine Protein Negative (Neg-Trace) mg/dL Urine Glucose (UA) Normal (Normal) mg/dL Urine Ketones Negative (Negative) mg/dL Urine Blood Negative (Negative) Urine Nitrite Negative (Negative) Urine Bilirubin Negative (Negative) Urine Urobilinogen Normal (Normal) mg/dL Ur Leukocyte Esterase Large H (Negative) Urine Microscopic RBC 0-3 (0-3) per hpf Urine Microscopic WBC 15-30 H (0-3) per hpf Ur Squamous Epith Cells Many H (None-Few) per lpf Urine Bacteria None Seen (None-Few) per hpf Hyaline Casts None Seen (None-Few) per lpf Ur Culture Indicated? YES A (NO) 04/21/19 04/21/19 04/21/19 Range/Units 19:22 19:22 21:40 WBC (4.3-11.1) K/mcL RBC (3.82-4.97) M/mcL Hgb (11.5-15.4) g/dL Hct (35.3-44.9) % MCV (83.0-100.0) fL MCH (28.0-33.3) pg MCHC (31.6-35.5) g/dL RDW (11.5-14.5) % Plt Count (140-400) K/mcL MPV (9.4-12.4) fL PT 15.2 H (9.4-12.1) Seconds INR 1.3 APTT 36.1 H (26.0-36.0) Seconds Heparin Anti-Xa, Unfract 1.24 H* (0.30-0.70) IU/mL Sodium 138 (136-145) mEq/L Potassium 4.0 (3.5-5.1) mEq/L Chloride 102 (98-107) mEq/L Carbon Dioxide 26 (23-29) mEq/L BUN 20 (8-23) mg/dL Creatinine 1.18 (0.60-1.20) mg/dL Est GFR ( Amer) 54 L (> 60) Est GFR (Non-Af Amer) 45 L (> 60) BUN/Creatinine Ratio 17 (6-26) Glucose 89 (70-105) mg/dL POC Glucose (70-99) mg/dL Calculated Osmolality 288 (280-300) Calcium 9.8 (8.6-10.3) mg/dL Troponin I < 0.03 (< 0.04) ng/mL Urine Color (Yellow) Urine Clarity (Clear) Urine pH (5.0-8.0) pH Units Ur Specific [place] (1.010-1.025) Urine Protein (Neg-Trace) mg/dL Urine Glucose (UA) (Normal) mg/dL Urine Ketones (Negative) mg/dL Urine Blood (Negative) Urine Nitrite (Negative) Urine Bilirubin (Negative) Urine Urobilinogen (Normal) mg/dL Ur Leukocyte Esterase (Negative) Urine Microscopic RBC (0-3) per hpf Urine Microscopic WBC (0-3) per hpf Ur Squamous Epith Cells (None-Few) per lpf Urine Bacteria (None-Few) per hpf Hyaline Casts (None-Few) per lpf Ur Culture Indicated? (NO) 04/21/19 Range/Units 21:41 WBC (4.3-11.1) K/mcL RBC (3.82-4.97) M/mcL Hgb (11.5-15.4) g/dL Hct (35.3-44.9) % MCV (83.0-100.0) fL MCH (28.0-33.3) pg MCHC (31.6-35.5) g/dL RDW (11.5-14.5) % Plt Count (140-400) K/mcL MPV (9.4-12.4) fL PT (9.4-12.1) Seconds INR APTT 36.9 H (26.0-36.0) Seconds Heparin Anti-Xa, Unfract (0.30-0.70) IU/mL Sodium (136-145) mEq/L Potassium (3.5-5.1) mEq/L Chloride (98-107) mEq/L Carbon Dioxide (23-29) mEq/L BUN (8-23) mg/dL Creatinine (0.60-1.20) mg/dL Est GFR ( Amer) (> 60) Est GFR (Non-Af Amer) (> 60) BUN/Creatinine Ratio (6-26) Glucose (70-105) mg/dL POC Glucose (70-99) mg/dL Calculated Osmolality (280-300) Calcium (8.6-10.3) mg/dL Troponin I (< 0.04) ng/mL Urine Color (Yellow) Urine Clarity (Clear) Urine pH (5.0-8.0) pH Units Ur Specific [place] (1.010-1.025) Urine Protein (Neg-Trace) mg/dL Urine Glucose (UA) (Normal) mg/dL Urine Ketones (Negative) mg/dL Urine Blood (Negative) Urine Nitrite (Negative) Urine Bilirubin (Negative) Urine Urobilinogen (Normal) mg/dL Ur Leukocyte Esterase (Negative) Urine Microscopic RBC (0-3) per hpf Urine Microscopic WBC (0-3) per hpf Ur Squamous Epith Cells (None-Few) per lpf Urine Bacteria (None-Few) per hpf Hyaline Casts (None-Few) per lpf Ur Culture Indicated? (NO) - Radiology Data Radiology results reviewed: Yes I reviewed the patient's radiology results. Chest X-Ray 04/21/19 19:58 IMPRESSION: No acute cardiopulmonary findings. D/ / Irina Joyner MD / Irina Joyner MD Interpreting Provider: Irina Joyner MD Head CT 04/21/19 20:35 IMPRESSION: Mild atherosclerotic changes. No evidence of hemodynamic stenosis or occlusion involving the intracranial or cervical arterial circulation. Mild chronic small ischemic changes without acute bleed or midline shift. D/ / Ricky Millan / Ricky Millan Interpreting Provider: Ricky Millan Head CTA 04/21/19 20:35 IMPRESSION: Mild atherosclerotic changes. No evidence of hemodynamic stenosis or occlusion involving the intracranial or cervical arterial circulation. Mild chronic small ischemic changes without acute bleed or midline shift. D/ / Ricky Millan / Ricky Millan Interpreting Provider: Ricky Millan Neck CTA 04/21/19 20:35 IMPRESSION: Mild atherosclerotic changes. No evidence of hemodynamic stenosis or occlusion involving the intracranial or cervical arterial circulation. Mild chronic small ischemic changes without acute bleed or midline shift. D/ / Ricky Millan / Ricky Millan Interpreting Provider: Ricky Millan Stroke Scale - Level of Consciousness LOC: Alert - LOC Questions LOC Questions: Answers both correctly - LOC Commands LOC Commands: Performs both correctly - Best Gaze Best Gaze: Normal - Visual Visual: No visual loss - Facial Palsy Facial Palsy: Normal - Motor Arms Motor Arm-Left: No drift for 10 seconds Motor Arm-Right: No drift for 10 seconds - Motor Legs Motor Leg-Left: No drift for 5 seconds Motor Leg-Right: No drift for 5 seconds - Limb Ataxia Limb Ataxia: Absent of affected limb too weak to perform exam - Sensory Sensory: Normal - Best Language Best Language: No aphasia - Dysarthria Dysarthria: Normal - Extinction and Inattention Extinction and Inattention: Normal - NIHSS Total Score NIHSS Total Score: 0 TPA Checklist - LKW: 3-4.5 hrs Add. Warnings/Precautions Patient/family understanding: The patient/family members have been counseled and understood the risk, benefit, and alternatives of treatment.
[2019-04-21 19:36] LABS: Hematocrit 41.3 % (35.3-44.9); Hemoglobin 13.4 g/dL (11.5-15.4); Mean Corpuscular HGB Conc 32.4 g/dL (31.6-35.5); Mean Corpuscular Hemoglobin 30.8 pg (28.0-33.3); Mean Corpuscular Volume 94.9 fL (83.0-100.0); Mean Platelet Volume 11.9 fL (9.4-12.4); Platelet Count 154 K/mcL (140-400); Red Blood Count 4.35 M/mcL (3.82-4.97); Red Cell Distribution Width 12.9 % (11.5-14.5); White Blood Count 7.2 K/mcL (4.3-11.1)
[2019-04-21 19:37] LABS: Bilirubin,Urine Negative (Negative); Blood,Urine Negative (Negative); Clarity,Urine Clear (Clear); Color,Urine Yellow (Yellow); Glucose,Urine (UA) Normal (Normal); Ketones,Urine Negative (Negative); Leukocyte Esterase,Urine Large (Negative); Nitrite,Urine Negative (Negative); Protein,Urine Negative (Neg-Trace); Specific Gravity,Urine 1.011 (1.010-1.025); Urobilinogen,Urine Normal (Normal)
[2019-04-21 19:39] LABS: Bacteria,Urine None Seen per hpf (None-Few); Hyaline Casts,Urine None Seen per lpf (None-Few); RBC,Urine 0-3 per hpf (0-3); Squamous Epithelial Cell,Urine Many per lpf (None-Few); WBC,Urine 15-30 per hpf (0-3)
[2019-04-21] MEDS ORDERED: Isovue-370 500 ML BOTTLE IVP ONE (19:42)
[2019-04-21 19:49] LABS: INR 1.3; Prothrombin Time 15.2 Seconds (9.4-12.1)
[2019-04-21 19:51] LABS: Activated Partial Thrombo Time 36.1 Seconds (26.0-36.0)
[2019-04-21 20:00] LABS: BUN/Creatinine Ratio 17 (6-26); Blood Urea Nitrogen 20 mg/dL (8-23); Calcium 9.8 mg/dL (8.6-10.3); Carbon Dioxide 26 mEq/L (23-29); Chloride 102 mEq/L (98-107); Glucose 89 mg/dL (70-105); Osmolality,Calculated 288 (280-300); Sodium 138 mEq/L (136-145); Troponin I < 0.03 ng/mL (< 0.04); eGFR For African Americans 54 (> 60); eGFR For Non-African Americans 45 (> 60)
[2019-04-21] MEDS ORDERED: Aspirin 325 MG TABLET PO ONE (20:56)
[2019-04-21] MEDS ORDERED: *HR* Heparin 5,000 UNIT/ML VIAL IVP ONE (21:27)
[2019-04-21] MEDS ORDERED: *HR* Heparin 5,000 UNIT/ML VIAL IVP PRN ×2 (21:27)
[2019-04-21] MEDS ORDERED: Heparin 25,000 UNIT/250 ML D5W 25,000 UNIT/250 ML IV.SOLN IVC SCH ×2 (21:30→22:15)
--- NOTE | 2019-04-21 21:45 | Emergency Department Note ---
Disposition Clinical Impression: Chigger bites CVA (cerebral vascular accident) Qualifiers: CVA mechanism: unspecified Qualified Code(s): I63.9 - Cerebral infarction, u nspecified Disposition: Admitted As Inpatient Condition: Fair Time of Disposition: 03:32 General Adult HPI - General Chief complaint: ED Neuro Symptoms/Deficit Stated complaint: Neuro symptoms Time Seen by Provider: 04/21/19 19:00 Source: patient Mode of arrival: private vehicle Limitations: no limitations - History of Present Illness Pain Scale: 0 - Related Data Home Medications Medication Instructions Recorded Confirmed Albuterol Sulfate [Proventil 2 puff IH Q6H PRN 08/30/16 04/21/19 Inhaler] Ipratropium [ATROVENT Inhaler] 2 puff IH Q6H PRN 08/30/16 04/21/19 Isosorbide MONOnitrate (24 HR) 30 mg PO DAILY 08/30/16 04/21/19 [Imdur] Lisinopril [Zestril] 40 mg PO HS 08/30/16 04/21/19 Nitroglycerin 0.4 mg PO Q5MIN PRN 08/30/16 04/21/19 Amlodipine Besylate 5 mg PO BID 04/21/19 04/21/19 Apixaban [Eliquis] 5 mg PO BID 04/21/19 04/21/19 Previous Rx's Medication Instructions Recorded Aspirin 81 mg PO DAILY #30 tab.chew 09/01/16 Sotalol [Betapace] 40 mg PO Q12H #30 tablet 09/01/16 Allergies Allergy/AdvReac Type Severity Reaction Status Date / Time codeine Allergy See Verified 03/31/18 16:33 Comments naproxen Allergy See Verified 03/31/18 16:33 Comments opium (anthroposophic) Allergy See Verified 03/31/18 16:33 [Opium (Anthroposophic)] Comments psuedoephedrine Allergy See Uncoded 08/30/16 07:09 Comments Past Medical History - Past Medical History Medical history: Reports: asthma, atrial fibrillation, hyperlipidemia, hypertension Surgical history: Reports: hysterectomy Psychiatric history: Reports: no psych history - Social History Smoking Status: Former smoker Smokeless Tobacco Status: No Alcohol use: Reports: none Drug use: Reports: none Physical Exam - General Limitations: no limitations General appearance: alert Course Vital Signs Temperature 98.1 F 04/21/19 18:53 Pulse Rate 70 04/21/19 18:53 Respiratory Rate 18 04/21/19 18:53 Blood Pressure 178/79 04/21/19 18:53 O2 Sat by Pulse Oximetry 98 04/21/19 18:53 Temperature 97.7 F 04/22/19 03:10 Pulse Rate 66 04/22/19 03:10 Respiratory Rate 16 04/22/19 03:10 Blood Pressure 157/74 04/22/19 03:10 O2 Sat by Pulse Oximetry 95 04/22/19 03:10 Oxygen Delivery Oxygen Delivery Room Air Medical Decision Making - Lab Data Result diagrams: 04/21/19 19:22 04/21/19 19:22 Lab Results 04/21/19 04/21/19 04/21/19 Range/Units 18:59 19:13 19:22 WBC 7.2 (4.3-11.1) K/mcL RBC 4.35 (3.82-4.97) M/mcL Hgb 13.4 (11.5-15.4) g/dL Hct 41.3 (35.3-44.9) % MCV 94.9 (83.0-100.0) fL MCH 30.8 (28.0-33.3) pg MCHC 32.4 (31.6-35.5) g/dL RDW 12.9 (11.5-14.5) % Plt Count 154 (140-400) K/mcL MPV 11.9 (9.4-12.4) fL PT (9.4-12.1) Seconds INR APTT (26.0-36.0) Seconds Heparin Anti-Xa, Unfract (0.30-0.70) IU/mL Sodium (136-145) mEq/L Potassium (3.5-5.1) mEq/L Chloride (98-107) mEq/L Carbon Dioxide (23-29) mEq/L BUN (8-23) mg/dL Creatinine (0.60-1.20) mg/dL Est GFR ( Amer) (> 60) Est GFR (Non-Af Amer) (> 60) BUN/Creatinine Ratio (6-26) Glucose (70-105) mg/dL POC Glucose 89 (70-99) mg/dL Calculated Osmolality (280-300) Calcium (8.6-10.3) mg/dL Troponin I (< 0.04) ng/mL Urine Color Yellow (Yellow) Urine Clarity Clear (Clear) Urine pH 7.0 (5.0-8.0) pH Units Ur Specific [place] 1.011 (1.010-1.025) Urine Protein Negative (Neg-Trace) mg/dL Urine Glucose (UA) Normal (Normal) mg/dL Urine Ketones Negative (Negative) mg/dL Urine Blood Negative (Negative) Urine Nitrite Negative (Negative) Urine Bilirubin Negative (Negative) Urine Urobilinogen Normal (Normal) mg/dL Ur Leukocyte Esterase Large H (Negative) Urine Microscopic RBC 0-3 (0-3) per hpf Urine Microscopic WBC 15-30 H (0-3) per hpf Ur Squamous Epith Cells Many H (None-Few) per lpf Urine Bacteria None Seen (None-Few) per hpf Hyaline Casts None Seen (None-Few) per lpf Ur Culture Indicated? YES A (NO) 04/21/19 04/21/19 04/21/19 Range/Units 19:22 19:22 21:40 WBC (4.3-11.1) K/mcL RBC (3.82-4.97) M/mcL Hgb (11.5-15.4) g/dL Hct (35.3-44.9) % MCV (83.0-100.0) fL MCH (28.0-33.3) pg MCHC (31.6-35.5) g/dL RDW (11.5-14.5) % Plt Count (140-400) K/mcL MPV (9.4-12.4) fL PT 15.2 H (9.4-12.1) Seconds INR 1.3 APTT 36.1 H (26.0-36.0) Seconds Heparin Anti-Xa, Unfract 1.24 H* (0.30-0.70) IU/mL Sodium 138 (136-145) mEq/L Potassium 4.0 (3.5-5.1) mEq/L Chloride 102 (98-107) mEq/L Carbon Dioxide 26 (23-29) mEq/L BUN 20 (8-23) mg/dL Creatinine 1.18 (0.60-1.20) mg/dL Est GFR ( Amer) 54 L (> 60) Est GFR (Non-Af Amer) 45 L (> 60) BUN/Creatinine Ratio 17 (6-26) Glucose 89 (70-105) mg/dL POC Glucose (70-99) mg/dL Calculated Osmolality 288 (280-300) Calcium 9.8 (8.6-10.3) mg/dL Troponin I < 0.03 (< 0.04) ng/mL Urine Color (Yellow) Urine Clarity (Clear) Urine pH (5.0-8.0) pH Units Ur Specific [place] (1.010-1.025) Urine Protein (Neg-Trace) mg/dL Urine Glucose (UA) (Normal) mg/dL Urine Ketones (Negative) mg/dL Urine Blood (Negative) Urine Nitrite (Negative) Urine Bilirubin (Negative) Urine Urobilinogen (Normal) mg/dL Ur Leukocyte Esterase (Negative) Urine Microscopic RBC (0-3) per hpf Urine Microscopic WBC (0-3) per hpf Ur Squamous Epith Cells (None-Few) per lpf Urine Bacteria (None-Few) per hpf Hyaline Casts (None-Few) per lpf Ur Culture Indicated? (NO) 04/21/19 Range/Units 21:41 WBC (4.3-11.1) K/mcL RBC (3.82-4.97) M/mcL Hgb (11.5-15.4) g/dL Hct (35.3-44.9) % MCV (83.0-100.0) fL MCH (28.0-33.3) pg MCHC (31.6-35.5) g/dL RDW (11.5-14.5) % Plt Count (140-400) K/mcL MPV (9.4-12.4) fL PT (9.4-12.1) Seconds INR APTT 36.9 H (26.0-36.0) Seconds Heparin Anti-Xa, Unfract (0.30-0.70) IU/mL Sodium (136-145) mEq/L Potassium (3.5-5.1) mEq/L Chloride (98-107) mEq/L Carbon Dioxide (23-29) mEq/L BUN (8-23) mg/dL Creatinine (0.60-1.20) mg/dL Est GFR ( Amer) (> 60) Est GFR (Non-Af Amer) (> 60) BUN/Creatinine Ratio (6-26) Glucose (70-105) mg/dL POC Glucose (70-99) mg/dL Calculated Osmolality (280-300) Calcium (8.6-10.3) mg/dL Troponin I (< 0.04) ng/mL Urine Color (Yellow) Urine Clarity (Clear) Urine pH (5.0-8.0) pH Units Ur Specific [place] (1.010-1.025) Urine Protein (Neg-Trace) mg/dL Urine Glucose (UA) (Normal) mg/dL Urine Ketones (Negative) mg/dL Urine Blood (Negative) Urine Nitrite (Negative) Urine Bilirubin (Negative) Urine Urobilinogen (Normal) mg/dL Ur Leukocyte Esterase (Negative) Urine Microscopic RBC (0-3) per hpf Urine Microscopic WBC (0-3) per hpf Ur Squamous Epith Cells (None-Few) per lpf Urine Bacteria (None-Few) per hpf Hyaline Casts (None-Few) per lpf Ur Culture Indicated? (NO) Attestation Statement - Attestation Attestation: I reviewed the residents documentation and agree with the residents assessment and plan of care. I have personally had face to face time with the patient. (Brief History, Brief Exam, and MDM) I personally supervised and was present for the beltran/critical portions of the following procedures completed by the resident: EKG 78 year old female presents to the ED with complaints of right sided weakness and rash on bilateral ankles. She was originially evluated at the and sent her for stroke workup. PAtinet states the rash is extremely itchy and that she has been walking around outsie without properly covering her feet and they have otherwise been onlly located around her ankles, they appear to be chigger bites. PAtinet CTA head/neck and noncontrast HCT are otherwise chornic and at baseline wihtout evidence of blood clot. We have discussed case with Dr. Butler from neurology and he reccomends admission to the hospital for stroke workup. ADmit to medicine. PAtient is agrreable to admission
[2019-04-21] MEDS: Heparin 25,000 UNIT/250 ML D5W 25,000 UNIT/250 ML IV.SOLN IVC SCH (22:34)
[2019-04-22] MEDS ORDERED: Naloxone 0.4 MG/ML INJ IVP PRN (02:43)
--- NOTE | 2019-04-22 03:20 | Internal Med History&Physical ---
Date of Encounter: 04/22/19 Time of Encounter: 02:00 Internal Medicine - H&P: HPI Chief complaint: Stoke Like Symptoms Admitted From: Home Plans for Post Hospital Care: Home History of present illness: Ms. Olvera is a 78 year old female with past medical history significant for A. fib on Eliquis, hyperlipidemia, hypertension, asthma, and arthritis who presents from urgent care for stroke like symptoms. Reports yesterday she had 2 episodes lasting 20-30 minutes where her right hand, right foot, and an area around her lips on the right side of her face went numb. Also reports having an episode lasting about the same amount time affecting only her right hand around a week ago. Denies any slurred speech or facial droop. Denies any other symptoms like this previously. Symptoms were resolved upon arrival to [facility] and NIHSS was scored at 0. ER obtained chest x-ray which showed no acute cardiopulmonary findings. ER also obtained a head CT and CTA of the head and neck which showed mild atherosclerotic changes, no evidence of hematoma dynamic stenosis or occlusion involving the intracranial or cervical arterial circulation, and mild chronic small ischemic changes without acute bleed or midline shift. ER spoke with intrusion analyst Neurology Dr Hameed who requested patient Eliquis be held and start on Heparin drip and obtain CTA of Head and Neck and admit for further evaluation. Patient also complains of pruritic rash to her bilateral lower extremities for past four days that she thinks may be secondary to walking in her yard. Has tried calamine lotion which she reports helps some. Currently denies any headache, numbness, tingling, chest pain, shortness of breath, cough, abdominal pain, bowel or bladder changes. Follows regularly with her PCP and Cardiology. Past Med Surg Social Fam HX - Past Medical History Medical history: arthritis, asthma, atrial fibrillation, hyperlipidemia, hypertension Additional medical history: VERTIGO Psychiatric history: no psych history - Past Surgical History Surgical History: cholecystectomy, hysterectomy Additional surgical history: Cardiac ablation - Social History Smoking Status: Former smoker Smokeless Tobacco Status: No Alcohol use: none Drug use: none - Family History Mother Living Status: Hx Family Cancer: Yes (breast) Internal Medicine - H&P: Meds Albuterol Sulfate [Proventil Inhaler] 2 puff IH Q6H PRN 08/30/16 [History] Ipratropium [ATROVENT Inhaler] 2 puff IH Q6H PRN 08/30/16 [History] Isosorbide MONOnitrate (24 HR) [Imdur] 30 mg PO DAILY 08/30/16 [History] Lisinopril [Zestril] 40 mg PO HS 08/30/16 [History] Nitroglycerin 0.4 mg PO Q5MIN PRN 08/30/16 [History] Aspirin 81 mg PO DAILY #30 tab.chew 09/01/16 [Rx] Sotalol [Betapace] 40 mg PO Q12H #30 tablet 09/01/16 [Rx] Amlodipine Besylate 5 mg PO BID 04/21/19 [History] Apixaban [Eliquis] 5 mg PO BID 04/21/19 [History] Allergy/AdvReac Type Severity Reaction Status Date / Time codeine Allergy See Verified 03/31/18 16:33 Comments naproxen Allergy See Verified 03/31/18 16:33 Comments opium (anthroposophic) Allergy See Verified 03/31/18 16:33 [Opium (Anthroposophic)] Comments psuedoephedrine Allergy See Uncoded 08/30/16 07:09 Comments All Systems PM: A 10-system review of systems was performed and is negative for pertinent findings except as documented above in the HPI. - Constitutional Vitals: Temp Pulse Resp BP Pulse Ox 97.4 F L 64 16 167/65 98 04/21/19 23:18 04/21/19 23:18 04/21/19 23:18 04/21/19 23:18 04/21/19 23:18 Exam: General: Alert and oriented. Skin:Normal color, no lesions. Chronic petichiae to bilateral lower extremities. Red slightly raised rash noted to bilateral lower extremities as well. HEENT:EOM, pupils equal, round and reactive. Cardiovascular:Normal S1 & S2, no rubs, murmurs or gallops. No JVD. Pulse regular. Lungs:Breath sounds decreased, no wheezes or crackles. Abdomen:Soft, non-tender, no rigidity. Extremities:No deformity, no edema or tenderness, no joint swelling or clubbing. Neurological:Normal cognition and motor skills. Pulses:Carotid and radial pulses normal +2. Rest of the physical exam is non contributory. Internal Med - H&P Results - Labs CBC & Chem 7: 09/21/19 19:22 04/21/19 19:22 Labs: Short CBC 04/21/19 Range/Units 19:22 WBC 7.2 (4.3-11.1) K/mcL Hgb 13.4 (11.5-15.4) g/dL Hct 41.3 (35.3-44.9) % Plt Count 154 (140-400) K/mcL BMP 04/21/19 19:22 Sodium 138 Potassium 4.0 Chloride 102 Carbon Dioxide 26 BUN 20 Creatinine 1.18 Glucose 89 Calcium 9.8 Cardiac Enzymes 04/21/19 Range/Units 19:22 Troponin I < 0.03 (< 0.04) ng/mL Urine 04/21/19 Range/Units 18:59 Urine Color Yellow (Yellow) Urine Clarity Clear (Clear) Urine pH 7.0 (5.0-8.0) pH Units Ur Specific [place] 1.011 (1.010-1.025) Urine Protein Negative (Neg-Trace) mg/dL Urine Glucose (UA) Normal (Normal) mg/dL - Impressions ITS Impressions Chest X-Ray 04/21/19 19:58 IMPRESSION: No acute cardiopulmonary findings. D/ / Irina Joyner MD / Irina Joyner MD Interpreting Provider: Irina Joyner MD Head CT 04/21/19 20:35 IMPRESSION: Mild atherosclerotic changes. No evidence of hemodynamic stenosis or occlusion involving the intracranial or cervical arterial circulation. Mild chronic small ischemic changes without acute bleed or midline shift. D/ / Ricky Millan / Ricky Millan Interpreting Provider: Ricky Millan Head CTA 04/21/19 20:35 IMPRESSION: Mild atherosclerotic changes. No evidence of hemodynamic stenosis or occlusion involving the intracranial or cervical arterial circulation. Mild chronic small ischemic changes without acute bleed or midline shift. D/ / Ricky Millan / Ricky Millan Interpreting Provider: Ricky Millan Neck CTA 04/21/19 20:35 IMPRESSION: Mild atherosclerotic changes. No evidence of hemodynamic stenosis or occlusion involving the intracranial or cervical arterial circulation. Mild chronic small ischemic changes without acute bleed or midline shift. D/ / Ricky Millan / Ricky Millan Interpreting Provider: Ricky Millan - Assessment and Plan (1) Stroke-like symptoms Current Visit: Yes Status: Acute Assessment and plan: Reports 2 episodes yesterday of right hand, right foot, and right lip numbness lasting around 20-30 minutes each occurrence. Reports similar sensation to her right hand only around a week ago. Symptoms were completely resolved upon arrival to ER and remain resolved at this time. ER spoke with intrusion analyst Neurology Dr Hameed who requested patient Eliquis be held and start on Heparin drip and obtain CTA of Head and Neck and admit for further evaluation, neuro consult ordered. ER started patient on heparin drip will continue same. ER also obtained a head CT and CTA of the head and neck which showed mild atherosclerotic changes, no evidence of hematoma dynamic stenosis or occlusion involving the intracranial or cervical arterial circulation, and mild chronic small ischemic changes without acute bleed or midline shift. Neuro checks ordered. (2) Pruritic rash Current Visit: Yes Status: Acute Assessment and plan: Reports pruritic rash to bilateral lower extremities for past 4 days and she thinks may be secondary to walking in her yard. Tried calamine lotion at home which she reports has helped some. Received IV Benadryl in the ER which she feels helped some as well. We will order PRN topical Benadryl. Continue to monitor closely. (3) Abnormal urinalysis Current Visit: Yes Status: Acute Assessment and plan: UA obtained in ER shows large leukocyte esterase and WBC but also with many epithelial cells. Patient denies any urinary symptoms. Will hold off on antibiotics at this point. Urine culture pending. (4) Decreased GFR Current Visit: Yes Status: Chronic Assessment and plan: Appears chronic but most recent labs for comparison from 12/2017. BUN and creatinine within normal limits. Avoid nephrotoxins as able. Repeat labs ordered. (5) Hypertension Current Visit: Yes Status: Chronic Assessment and plan: Continue home medications once verified. Qualifiers: Hypertension type: unspecified Qualified Code(s): I10 - Essential (primary) hypertension (6) Atrial fibrillation Current Visit: Yes Status: Chronic Assessment and plan: Continue home mediations once verified. Hold eliquis and continue heparin drip per Neurology recommendations. Qualifiers: Atrial fibrillation type: unspecified Qualified Code(s): I48.91 - Unspecified atrial fibrillation - Time Spent With Patient Total time spent is greater than 50% in coordination of care (as documented) at patient's floor/unit and/or counseling patient:
[2019-04-22 05:16] LABS: Basophils % 0.5 %; Eosinophils # 0.3 K/mcL (0.0-0.6); Eosinophils % 4.1 %; Hematocrit 42.1 % (35.3-44.9); Hemoglobin 13.5 g/dL (11.5-15.4); Immature Granulocytes % 0.3 % (0-4); Lymphocytes # 2.2 K/mcL (0.6-4.6); Lymphocytes % 34.6 %; Mean Corpuscular HGB Conc 32.1 g/dL (31.6-35.5); Mean Corpuscular Hemoglobin 30.8 pg (28.0-33.3); Mean Corpuscular Volume 96.1 fL (83.0-100.0); Mean Platelet Volume 11.9 fL (9.4-12.4); Monocytes # 0.7 K/mcL (0.0-1.3); Monocytes % 10.7 %; Neutrophils # 3.1 K/mcL (1.6-8.9); Platelet Count 141 K/mcL (140-400); Red Blood Count 4.38 M/mcL (3.82-4.97); Red Cell Distribution Width 12.8 % (11.5-14.5); Segmented Neutrophils % 49.8 %; White Blood Count 6.3 K/mcL (4.3-11.1)
[2019-04-22 05:37] LABS: Alanine Aminotransferase 7 Units/L (7-52); Albumin 3.9 g/dL (3.5-5.7); Albumin/Globulin Ratio 1.7 (1.1-2.2); Alkaline Phosphatase 65 Units/L (34-104); Aspartate Amino Transferase 14 Units/L (13-39); BUN/Creatinine Ratio 15 (6-26); Bilirubin,Total 1.1 mg/dL (0.3-1.0); Blood Urea Nitrogen 15 mg/dL (8-23); Calcium 9.2 mg/dL (8.6-10.3); Carbon Dioxide 27 mEq/L (23-29); Chloride 106 mEq/L (98-107); Globulin 2.3 g/dL (2.4-3.5); Glucose 92 mg/dL (70-105); Osmolality,Calculated 294 (280-300); Potassium 3.7 mEq/L (3.5-5.1); Sodium 142 mEq/L (136-145); Total Protein 6.2 g/dL (6.4-8.9); eGFR For African Americans > 60 (> 60); eGFR For Non-African Americans 53 (> 60)
--- NOTE | 2019-04-22 08:14 | Event Note ---
<Ni Alonzo - Last Filed: 04/22/19 11:17> Date of Encounter: 04/22/19 Time of Encounter: 09:05 I saw evaluated and examined this patient and reviewed objective data including labs and my medical decision-making was reviewed with the Resident Physician, Arnaud Suero. I agree with the documented findings, disposition and treatment plan as described except to any changes set forth below. We independently had [id number] contact with the patient. Patient lying down in bed. Comfortable. Denies any numbness or tingling. Will order 2-D echocardiogram and MRI to continue workup for possible TIA. Await neurology consultation. Rash on lower extremities appears petechial and associated with pruritus. Topical Benadryl ordered. We will assess response to it. If no improvement in symptoms, consider oral Benadryl and systemic steroids. Acute counts normal. No signs of bleeding. <Arnaud Suero - Last Filed: 04/22/19 17:48> Date of Encounter: 04/22/19 Pt seen and examined at bedside. Pt reports all numbness and tingling has resolved. Denies any weakness. No fever, chills, headaches, vision changes, chest pain, or shortness of breath. States the rash on her ankles is very irritating. Reports the topical benadryl has helped some. Physical Exam: General: elderly appearing female in no acute distress Head: NCAT Eyes: PERRL, EOMI, sclera anicteric, conjunctiva pink Neck: supple, trachea midline Lungs: CTA bilaterally. non-labored breathing. No wheezes, rales, or rhonchi Heart: RRR +s1 +S2 No murmurs, clicks, or rubs GI: abdomen soft, non-tender, non-distended Extremities: warm, radial pulses palpable and symmetrical. No edema, cyanosis, or calf tenderness Neuro: A&Ox3. Sensation intact. Strength 5/5 in all 4 extremities. Skin: warm, dry, intact. No diaphoresis A/P: 1. Possible TIA - Neurological symptoms has resolved at this time - CT head and CTA head and neck showed mild atherosclerotic changes and mild chronic small ischemic changes - On Heparin drip at the recommendation of Neurology - Also on ASA, and Sotalol - Plan to obtain MRI head and echocardiogram 2. Pruritic rash on ankles - Received Benadryl in the ED with some relief - Topical benadryl - Continue to monitor and plan to escalate therapy if pruritus does not improve 3. Hx of afib - Pt reports she had an ablation - Also reports she has previously been on Coumadin and Xarelto before her current home Eliquis
[2019-04-22] MEDS ORDERED: Ipratropium 1 PUFF INHALER IH PRN (08:37)
[2019-04-22] MEDS ORDERED: DiphenhydraMINE CREAM 28.4 GM TUBE TP PRN (08:57)
[2019-04-22] MEDS: Aspirin 81 MG TAB.CHEW PO SCH (10:54)
--- NOTE | 2019-04-22 12:04 | Neurology - Consult Note ---
Date of Encounter: 04/22/19 Time of Encounter: 11:55 Assessment and Plan (1) Crescendo transient ischemic attacks Current Visit: Yes Status: Acute Pt admitted with multiple spells , consistent with TIAs, with history of paroximal A- FIB< on Elequis, no focal deficit, these are likely crescendo TIA< with history Afib and ablation in past, recommended to start Heparin, considering she is having these spells despite being on anticoagulation, concern not fully anticoagulation, may need to be on different anticoagulation like Coumadin ?? so far NO severe stenosis in intra or extra cranial circulation, monitor for A fib, get ECHO cardiogram for any abnormality . Also get a stroke workup including MRI of the brain to make sure that indeed she did not have any new infarct Patient did not have any significant focal motor neurological deficit do not think she would require any physical therapy at this time Other treatment is as per primary team (2) PAF (paroxysmal atrial fibrillation) Current Visit: No Status: Acute History of Present Illness HPI: Ms. Olvera is a 78 year old female with past medical history of A. fib on Sharon will,( s/p ABLATION) , hyperlipidemia, hypertension, asthma, and arthritis who presents from urgent care for stroke like symptoms. according to patient she she had 2 episodes lasting 20-30 minutes where her right hand, right foot, and an area around her lips on the right side of her face went numb. Also reports having another episode one weeks ago, lasting about the same amount time affecting only her right hand. she denies any slurred speech or facial droop. Symptoms were resolved upon arri rama to [facility] and NIHSS was scored at 0. CT and CTA of the head and neck which showed mild atherosclerotic changes, no evidence of any bleed or occlusion involving the intracranial or cervical arterial circulation, and mild chronic small ischemic changes. Denies any headache, numbness, tingling, chest pain, shortness of breath, cough, abdominal pain, bowel or bladder changes. Follows regularly with her PCP and Cardiology in [place] Past Med Surg Social Fam HX - Past Medical History Medical history: arthritis, asthma, atrial fibrillation, hyperlipidemia, hypertension Additional medical history: VERTIGO Psychiatric history: no psych history - Past Surgical History Surgical History: cholecystectomy, hysterectomy Additional surgical history: Cardiac ablation - Social History Smoking Status: Former smoker Smokeless Tobacco Status: No Alcohol use: none Drug use: none - Family History Mother Living Status: Hx Family Cancer: Yes (breast) Medications and Allergies Albuterol Sulfate [Proventil Inhaler] 2 puff IH Q6H PRN 08/30/16 [History] Ipratropium [ATROVENT Inhaler] 2 puff IH Q6H PRN 08/30/16 [History] Isosorbide MONOnitrate (24 HR) [Imdur] 30 mg PO DAILY 08/30/16 [History] Lisinopril [Zestril] 40 mg PO HS 08/30/16 [History] Nitroglycerin 0.4 mg PO Q5MIN PRN 08/30/16 [History] Aspirin 81 mg PO DAILY #30 tab.chew 09/01/16 [Rx] Sotalol [Betapace] 40 mg PO Q12H #30 tablet 09/01/16 [Rx] Amlodipine Besylate 5 mg PO BID 04/21/19 [History] Apixaban [Eliquis] 5 mg PO BID 04/21/19 [History] Allergy/AdvReac Type Severity Reaction Status Date / Time codeine Allergy See Verified 03/31/18 16:33 Comments naproxen Allergy See Verified 03/31/18 16:33 Comments opium (anthroposophic) Allergy See Verified 03/31/18 16:33 [Opium (Anthroposophic)] Comments psuedoephedrine Allergy See Uncoded 08/30/16 07:09 Comments All Systems: The remainder of the systems were reviewed and are negative Physical Examination - Vital Signs Vital Signs: Initial Vital Signs Temp Pulse Resp BP Pulse Ox 98.1 F 70 18 178/79 98 04/21/19 18:53 04/21/19 18:53 04/21/19 18:53 04/21/19 18:53 04/21/19 18:53 - Exam Exam: GENERAL: Comfortable in no acute distress HEENT: Normal LUNGS: CTA HEART: RRR, S1 S2 Audible, no murmur EXTREMITIES: No Pedal edema. DETAILED NEUROLOGICAL EXAMINATION: MENTAL STATUS: Oriented to person, place, date and situation. Memory: knows the President, Aware of recent events Recent Memory Intact, Attention span is normal Cranial Nerve Examination: CN - II: Visual Acuity, Field of Vision Normal, Fundus examination: No disk edema, Pupils- size shape reaction to light and accommodation: All normal. CN III, IV, : External ocular movements were intact, Pupils were reactive, Nodrooping of the eyelids CN V: Sensation over the face to light touch and pinprick all normal. Corneal reflexes not tested, jaw jerk normal. CN VII: No facial asymmetry, no flattening of nasolabial folds, no difficulty in closing the eyes, no loss of forehead wrinkles, no difficulty in eye-closure, frowning raising eyebrows. CNVIII: No significant hearing loss CN IX, X: Uvula centralized not deviated, Gag reflex: Not tested CN X1: Sternocleidomastoid, trapezius, normal or evidence of any weakness. CN X11: No Dysarthria, no wasting or fibrilation f tongue muscles, no deviation, tongue muscle strength normal. Motor examination: No hypertrophy, tone was normal, power grade 0-5 Upper limbs Proximal- No difficulty in lifting the arms above the head. Distal- No weakness in distal muscles On formal testing 5/5 all over Lower limbs On formal testing 5/5 all over Coordination: [id number] normal. Target pursuit normal finger tapping normal, Rapid alternating moment of wrist normal Sensory system: Superficial sensations- Touch normal. Pain- Pinprick, Temperature all normal, Deep sensation normal, Joint position sense normal. Cortical sensation, Tactile discrimination, localization and extinction all normal. Deep tendon reflexes. Symmetrical bilateral, No evidence of Babinski. No sign of meningeal irritation Gait Examination: Deferred - Constitutional General appearance: comfortable Results - Laboratory Findings CBC and BMP: 04/23/19 03:30 04/23/19 03:30 Abnormal lab findings: Abnormal lab results PT 15.2 Seconds (9.4-12.1) H 04/21/19 19:22 APTT 68.2 Seconds (26.0-36.0) H D 04/22/19 07:17 Heparin Anti-Xa, Unfract 1.24 IU/mL (0.30-0.70) H* 04/21/19 21:40 Est GFR ( Amer) 54 (> 60) L 04/21/19 19:22 Est GFR (Non-Af Amer) 53 (> 60) L 04/22/19 04:48 Total Bilirubin 1.1 mg/dL (0.3-1.0) H 04/22/19 04:48 Serum Total Protein 6.2 g/dL (6.4-8.9) L 04/22/19 04:48 Globulin 2.3 g/dL (2.4-3.5) L 04/22/19 04:48 Ur Leukocyte Esterase Large (Negative) H 04/21/19 18:59 Urine Microscopic WBC 15-30 per hpf (0-3) H 04/21/19 18:59 Ur Squamous Epith Cells Many per lpf (None-Few) H 04/21/19 18:59 Ur Culture Indicated? YES (NO) A 04/21/19 18:59 - Diagnostic Findings Additional findings: CT scan of the head was negative for any acute bleed or infarct CT of the head and neck shows atherosclerotic disease without any critical stenosis Consult Discharge Plan - Plan Referrals: Abebe Cruz Jr, MD [Primary Care Provider] -
[2019-04-23 03:56] LABS: Basophils % 0.5 %; Eosinophils # 0.3 K/mcL (0.0-0.6); Eosinophils % 4.2 %; Hematocrit 41.8 % (35.3-44.9); Hemoglobin 13.3 g/dL (11.5-15.4); Immature Granulocytes % 0.2 % (0-4); Lymphocytes % 33.2 %; Mean Corpuscular HGB Conc 31.8 g/dL (31.6-35.5); Mean Corpuscular Hemoglobin 30.4 pg (28.0-33.3); Mean Corpuscular Volume 95.4 fL (83.0-100.0); Mean Platelet Volume 12.1 fL (9.4-12.4); Monocytes # 0.6 K/mcL (0.0-1.3); Monocytes % 9.6 %; Neutrophils # 3.2 K/mcL (1.6-8.9); Platelet Count 140 K/mcL (140-400); Red Blood Count 4.38 M/mcL (3.82-4.97); Red Cell Distribution Width 12.8 % (11.5-14.5); Segmented Neutrophils % 52.3 %; White Blood Count 6.1 K/mcL (4.3-11.1)
[2019-04-23 04:12] LABS: Alanine Aminotransferase 7 Units/L (7-52); Albumin 3.9 g/dL (3.5-5.7); Albumin/Globulin Ratio 1.8 (1.1-2.2); Alkaline Phosphatase 70 Units/L (34-104); Aspartate Amino Transferase 14 Units/L (13-39); BUN/Creatinine Ratio 19 (6-26); Bilirubin,Total 0.9 mg/dL (0.3-1.0); Blood Urea Nitrogen 20 mg/dL (8-23); Calcium 9.2 mg/dL (8.6-10.3); Carbon Dioxide 27 mEq/L (23-29); Chloride 106 mEq/L (98-107); Globulin 2.2 g/dL (2.4-3.5); Glucose 96 mg/dL (70-105); Osmolality,Calculated 288 (280-300); Potassium 3.7 mEq/L (3.5-5.1); Sodium 138 mEq/L (136-145); Total Protein 6.1 g/dL (6.4-8.9); eGFR For African Americans > 60 (> 60); eGFR For Non-African Americans 52 (> 60)
[2019-04-23] MEDS: Heparin 25,000 UNIT/250 ML D5W 25,000 UNIT/250 ML IV.SOLN IVC SCH (04:14)
--- NOTE | 2019-04-23 07:04 | Electrocardiograph Report ---
[place] [id number] Test Date: 2019-04-21 Pat Name: Seble Olvera Department: [id number] Room: 3B35 Gender: F Directional Driller: : 1940 Requested By: Kathy Coates Order Number: [id number] Reading MD: Ruperto Gillette Measurements Intervals [place] Rate: 65 P: 71 WA: 166 QRS: 14 QRSD: 98 T: 61 QT: 463 QTc: 482 Interpretive Statements Sinus rhythm Abnormal R-wave progression, early transition Borderline T abnormalities, lateral leads Electronically Signed On 04-23-2019 7:03:10 EDT by Ruperto Gillette
--- NOTE | 2019-04-23 08:17 | Internal Med Progress Note ---
Hospitalist Progress Note - Encounter Date of Encounter: 04/23/19 Time of Encounter: 09:47 - Subjective Interval History: Patient has had no further episodes of numbness and tingling. She slept well last night. She expressed anxiety about upcoming MRI brain, due to claustrophobia. - Exam Vitals: Temp Pulse Resp BP Pulse Ox 98.0 F 57 16 132/73 97 04/23/19 06:57 04/23/19 06:57 04/23/19 06:57 04/23/19 06:57 04/23/19 06:57 Exam: GENERAL: alert, conversant. In no acute distress NEURO: CN II-XII grossly intact. Radiagraph Operator strength 5/5, UE and LE strength normal and equal bilaterally SKIN: no lesions, rashes, or cyanosis. EYES: anicteric, clear sclerae. Pupils equal and reactive to light and accommodation bilaterally HENT: atraumatic, normocephalic, moist mucosa NECK: no carotid bruits heard. Supple CV: regular rate and rhythm. Normal S1 and S2. No murmurs, clicks, or gallops RESPIRATORY: clear to auscultation bilaterally. No wheezes, rhonchi, or rales. ABDOMEN: soft, nontender, slightly distended. Normal bowel sounds heard. EXTREMITIES: no edema. Peripheral pulses 2+/4 - Assessment and Plan (1) Stroke-like symptoms Current Visit: Yes Status: Acute Assessment and Plan: Experienced 2 episodes of right hand, right foot, right perioral numbness which lasted 20-30 minutes each. Reported similar episode in right hand only approximately one week ago. Symptoms were completely resolved when she arrived at ED; symptoms continue to be resolved. -MRI Brain today was negative for infarct -Neurology ordered hold of Eliquis and began heparin drip -aPTT is 130.7 today -Currently holding heparin -Starting Coumadin today; patient will continue on Coumadin as home medication -Patient should follow-up with Cardiology as outpatient. (2) Pruritic rash Current Visit: Yes Status: Acute Assessment and Plan: Reports pruritic rash to bilateral lower extremities for past 4 days. Believes this is due to walking in her yard. Calamine lotion at home helped some. -IV Benadryl in ED helped some -Continue topical Benadryle PRN. -Continue to monitor. (3) Atrial fibrillation Current Visit: Yes Status: Chronic (4) Abnormal urinalysis Current Visit: Yes Status: Acute (5) Decreased GFR Current Visit: Yes Status: Chronic (6) Hypertension Current Visit: Yes Status: Chronic - Time Spent with Patient Total time spent is greater than 50% in coordination of care (as documented) at patient's floor/unit and/or counseling patient: Internal Medicine: Result - Labs CBC & Chem 7: 04/23/19 03:30 04/23/19 03:30 Labs: Short CBC 04/23/19 Range/Units 03:30 WBC 6.1 (4.3-11.1) K/mcL Hgb 13.3 (11.5-15.4) g/dL Hct 41.8 (35.3-44.9) % Plt Count 140 (140-400) K/mcL Neutrophils # 3.2 (1.6-8.9) K/mcL BMP 04/23/19 03:30 Sodium 138 Potassium 3.7 Chloride 106 Carbon Dioxide 27 BUN 20 Creatinine 1.04 Glucose 96 Calcium 9.2 Liver Function 04/23/19 Range/Units 03:30 Total Bilirubin 0.9 (0.3-1.0) mg/dL AST 14 (13-39) Units/L ALT 7 (7-52) Units/L Alkaline Phosphatase 70 (34-104) Units/L Albumin 3.9 (3.5-5.7) g/dL - ABG Interpretation ABG results: PT/INR, D-dimer PT 15.2 Seconds (9.4-12.1) H 04/21/19 19:22 - Impressions Impressions Echocardiogram 04/22/19 11:40 Impressions: LVEF 60-65%. Normal LV chamber size, wall thickness and function. Mild left ventricular diastolic dysfunction. Normal right ventricular structure and function. Mild tricuspid regurgitation. No pulmonary hypertension. No evidence of a PFO with agitated saline contrast. Left Ventricular Wall Motion: Rest Echo Findings All wall segments showed normal motion. Findings: Study Quality * Technically adequate exam. ECG Findings * Normal sinus rhythm. Left Ventricle * LVEF 60-65%. * Normal LV chamber size, wall thickness and function. * Mild left ventricular diastolic dysfunction. Right Ventricle * Normal right ventricular structure and function. Left Atrium * Normal left atrial size. Right Atrium * Normal right atrial size. Interatrial Septum * No evidence of PFO with agitated saline contrast. Aortic Valve * Aortic valve not well visualized. * No aortic regurgitation. * No aortic stenosis. Mitral Valve * Normal mitral valve structure and function. * No mitral stenosis. * Trace mitral regurgitation. Tricuspid Valve * Normal tricuspid valve structure. * Mild tricuspid regurgitation. * No pulmonary hypertension. Pulmonic Valve * Pulmonic valve is not well visualized. * No pulmonic regurgitation. Aorta * Normally sized aortic root. Pericardium * The pericardium appears normal. IVC * Normal IVC dimensions and inspiratory collapse. Pulmonary Artery * Normal visualized portions of the main pulmonary artery. Consult Discharge Plan - Plan Referrals: Abebe Cruz Jr, MD [Primary Care Provider] - (3) Atrial fibrillation Qualifiers: Atrial fibrillation type: unspecified Qualified Code(s): I48.91 - Unspecified atrial fibrillation (6) Hypertension Qualifiers: Hypertension type: unspecified Qualified Code(s): I10 - Essential (primary) hypertension
[2019-04-23] MEDS: Aspirin 81 MG TAB.CHEW PO SCH (08:31)
--- NOTE | 2019-04-23 08:31 | Neurology Progress Note ---
Date of Encounter: 04/23/19 Time of Encounter: 07:27 Assessment and Plan (1) Yuval transient ischemic attacks Current Visit: Yes Status: Acute Patient was been admitted earlier with the symptoms consistent with multiple TIAs at least 3 spells over the past several weeks now asymptomatic on heparin drip since admission So far no obvious embolic source noted in particularly no evidence of any carotid stenosis neither any embolic source from the heart She does have an history of atrial fibrillation and ablation of the heart in the past And had been on ELEQUIS. Considering she had these episodes while on anticoagulation I have suggested to be changed to a different anticoagulation agent ?? We will ask cardiology regarding this recommendation Beside that continue on current medication continue monitor for any cardiac arrhythmias MRI today to confirm indeed she did not have any new infarct (2) PAF (paroxysmal atrial fibrillation) Current Visit: No Status: Acute Subjective Interval history: Patient is clinically stable she denies any other new symptoms no further episodes of weakness or numbness or tingling She had been on heparin drip with vascular protocol Echocardiogram is negative for any embolic source CT of the head and neck was also negative for any critical stenosis So far no evidence of any atrial fibrillation on EKG Objective - Constitutional Vitals: Temp Pulse Resp BP Pulse Ox 98.0 F 57 16 132/73 97 04/23/19 06:57 04/23/19 06:57 04/23/19 06:57 04/23/19 06:57 04/23/19 06:57 - Neurological Exam Sensorimotor examination: Present: intact Motor Examination: Present: grossly full strength in all extremities Sensation intact: Present: intact Reflex and gait examination: intact Reflexes: Biceps: 1+, Triceps: 1+, Brachioradialis: 1+, Patella: 1+, Achilles: 1+ Mental Status Examination: Present: awake, alert, oriented to person, oriented to place, oriented to time, follows commands appropriately Cranial nerve examination: Present: PERRL, EOMI, visual little intact, no facial asymmetry is present, no dysarthria Cerebellar examination: Present: no dysmetria, no difficulty with rapid alternating movements Results - Laboratory Findings CBC and BMP: 04/23/19 03:30 04/23/19 03:30 Abnormal lab findings: Abnormal lab results PT 15.2 Seconds (9.4-12.1) H 04/21/19 19:22 APTT 130.7 Seconds (26.0-36.0) H* 04/23/19 03:30 Heparin Anti-Xa, Unfract 1.24 IU/mL (0.30-0.70) H* 04/21/19 21:40 Est GFR ( Amer) 54 (> 60) L 04/21/19 19:22 Est GFR (Non-Af Amer) 52 (> 60) L 04/23/19 03:30 POC Glucose 108 mg/dL (70-99) H 04/22/19 11:18 Total Bilirubin 1.1 mg/dL (0.3-1.0) H 04/22/19 04:48 Serum Total Protein 6.1 g/dL (6.4-8.9) L 04/23/19 03:30 Globulin 2.2 g/dL (2.4-3.5) L 04/23/19 03:30 Ur Leukocyte Esterase Large (Negative) H 04/21/19 18:59 Urine Microscopic WBC 15-30 per hpf (0-3) H 04/21/19 18:59 Ur Squamous Epith Cells Many per lpf (None-Few) H 04/21/19 18:59 Ur Culture Indicated? YES (NO) A 04/21/19 18:59 - Diagnostic Findings Additional findings: CT of the head and neck negative for any critical stenosis Echocardiogram negative for any embolic source no evidence of any PFO Consult Discharge Plan - Plan Referrals: Abebe Cruz Jr, MD [Primary Care Provider] -
[2019-04-23 08:59] LABS: Chol/HDL Ratio 4.5 (0-4.9); Cholesterol 251 mg/dL (< 200); HDL Cholesterol 56 mg/dL (40-59); LDL Cholesterol,Calculated 147 mg/dL (0-99); Triglycerides 242 mg/dL (< 150)
--- NOTE | 2019-04-23 14:39 | Discharge Summary ---
<Elizabeth Shane - Last Filed: 04/23/19 15:09> Date of Encounter: 04/23/19 Time of Encounter: 14:38 - Discharge Diagnosis (1) Stroke-like symptoms Priority: Primary Status: Acute (2) Pruritic rash Priority: Secondary Status: Acute (3) Atrial fibrillation Priority: Secondary Status: Chronic Qualifiers: Atrial fibrillation type: unspecified Qualified Code(s): I48.91 - Unspecified atrial fibrillation (4) Abnormal urinalysis Priority: Secondary Status: Acute (5) Decreased GFR Priority: Secondary Status: Chronic (6) Hypertension Priority: Secondary Status: Chronic Qualifiers: Hypertension type: unspecified Qualified Code(s): I10 - Essential (primary) hypertension Hospital course: Ms. Olvera is a 78-year-old female with a past medical history of atrial fibrillation on Eliquis, hypertension, asthma, hyperlipidemia, and arthritis who presented to [facility] ED on 04/21/19 with a chief complaint of strokelike symptoms. She had reported 2 episodes lasting approximately 20-30 minutes. Reported that her right hand, right foot, right side of her face, and her perioral region became numb. Denied having slurred speech or facial droop. Denied any prior episodes. Symptoms had resolved upon arrival to [facility]. NIHSS score at that time was 0. CT of the head and CTA of the head and neck demonstrated the presence of mild atherosclerotic changes without evidence of hematoma or stenosis. There were mild chronic small ischemic changes present. No sign of intracranial bleed. Neurology was consulted from the emergency department, who recommended holding patients home Eliquis and starting her on a heparin drip. She was admitted to the hospital for CVA workup. An MRI of the head and echocardiogram were both ordered. She was also complaining of a pruritic rash on both of her ankles, for which she was prescribed topical Benadryl. She was noted to have no focal deficits. Through the neurology service, patient did not have any obvious embolic source. 2 to the fact that she has been having these episodes while anticoagulated on Eliquis, neurology recommended switching her anticoagulation to Coumadin. This was discussed with patient, who stated that she had previously been on Coumadin for anticoagulation for her history of atrial fibrillation. However, she requested to be switched to Eliquis at the time due to the inconvenience of being on Coumadin. Neurologys recommendations were discussed with patient, and she stated that she would prefer to remain on Eliquis for the time being. She was also given a bottle of topical di phenhydramine for her rash. She reports feeling well today, and denies having any focal weakness, numbness, or tingling. She is instructed to follow up with her primary care provider and cosmetologist apprentice in the outpatient setting within the next 2 weeks. She will be started on pravastatin. - Time Spent with Patient Total time spent providing and/or coordinating discharge services: - Discharge Medications Prescriptions: New Pravastatin Sodium [Pravachol] 40 mg PO DAILY #30 tablet DiphenhydraMINE [Benadryl] 1 appl TP TID PRN #1 tube PRN Reason: Itching Continued Nitroglycerin 0.4 mg PO Q5MIN PRN PRN Reason: Chest Pain Lisinopril [Zestril] 40 mg PO HS Isosorbide MONOnitrate (24 HR) [Imdur] 30 mg PO DAILY Ipratropium [ATROVENT Inhaler] 2 puff IH Q6H PRN PRN Reason: Shortness Of Breath Albuterol Sulfate [Proventil Inhaler] 2 puff IH Q6H PRN PRN Reason: Shortness Of Breath Aspirin 81 mg PO DAILY #30 tab.chew Sotalol [Betapace] 40 mg PO Q12H #30 tablet Amlodipine Besylate 5 mg PO BID Apixaban [Eliquis] 5 mg PO BID Home Medications: Albuterol Sulfate [Proventil Inhaler] 2 puff IH Q6H PRN 08/30/16 [History] Ipratropium [ATROVENT Inhaler] 2 puff IH Q6H PRN 08/30/16 [History] Isosorbide MONOnitrate (24 HR) [Imdur] 30 mg PO DAILY 08/30/16 [History] Lisinopril [Zestril] 40 mg PO HS 08/30/16 [History] Nitroglycerin 0.4 mg PO Q5MIN PRN 08/30/16 [History] Aspirin 81 mg PO DAILY #30 tab.chew 09/01/16 [Rx] Sotalol [Betapace] 40 mg PO Q12H #30 tablet 09/01/16 [Rx] Amlodipine Besylate 5 mg PO BID 04/21/19 [History] Apixaban [Eliquis] 5 mg PO BID 04/21/19 [History] DiphenhydraMINE [Benadryl] 1 appl TP TID PRN #1 tube 04/23/19 [Rx] Pravastatin Sodium [Pravachol] 40 mg PO DAILY #30 tablet 04/23/19 [Rx] Allergies/Adverse Reactions: Allergy/AdvReac Type Severity Reaction Status Date / Time codeine Allergy See Verified 03/31/18 16:33 Comments naproxen Allergy See Verified 03/31/18 16:33 Comments opium (anthroposophic) Allergy See Verified 03/31/18 16:33 [Opium (Anthroposophic)] Comments psuedoephedrine Allergy See Uncoded 08/30/16 07:09 Comments Date of admission: 04/21/19 22:10 Primary care physician: Abebe Cruz Jr, MD Consults: 04/21/19 21:26 Consult to Neurology [CONS] Stat Consulting Provider: [facility] Reason for Consult: TIAs with hx of Afib on Eliquis Time Notified: 21:27 Call Completed: Yes Discharging clinician: Elizabeth Shane Anticipated date of discharge: 04/23/19 - Constitutional Vitals: Temp Pulse Resp BP Pulse Ox 98.3 F 67 17 116/69 97 04/23/19 10:59 04/23/19 10:59 04/23/19 10:59 04/23/19 10:59 04/23/19 06:57 Exam: GENERAL: alert, conversant. In no acute distress NEURO: CN II-XII grossly intact. [employer] Professor strength 5/5, UE and LE strength normal and equal bilaterally SKIN: no lesions, rashes, or cyanosis. EYES: anicteric, clear sclerae. Pupils equal and reactive to light and accommodation bilaterally HENT: atraumatic, normocephalic, moist mucosa NECK: no carotid bruits heard. Supple CV: regular rate and rhythm. Normal S1 and S2. No murmurs, clicks, or gallops RESPIRATORY: clear to auscultation bilaterally. No wheezes, rhonchi, or rales. ABDOMEN: soft, nontender, slightly distended. Normal bowel sounds heard. EXTREMITIES: no edema. Peripheral pulses 2+/4. Slight red discoloration around both ankles, R>L - Patient Status Disposition: Home, Self-Care Condition: Fair - Discharge Instructions Follow Up With: Abebe Cruz Jr, MD [Primary Care Provider] - 04/30/19 12:00 pm - Diet and Activity Activity: increase activity as tolerated Diet: advance to your usual diet <Ni Alonzo - Last Filed: 04/23/19 15:59> - NOTES TO OUTPATIENT PROVIDER Notes to Outpatient Provider: Patient hospitalized for possible TIA. Patient has been having episodes of TIA in a crescendo pattern. Neurology evaluated patient and recommended that she be switched over from Eliquis back to Coumadin but at this time patient wishes to stay on Eliquis and discuss this further with her cosmetologist apprentice before transitioning. She has been placed on pravastatin and will continue take aspirin. Date of Encounter: 04/23/19 Time of Encounter: 15:56 - Discharge Diagnosis (1) Stroke-like symptoms Status: Acute (2) Pruritic rash Status: Acute (3) Abnormal urinalysis Status: Acute (4) Decreased GFR Status: Chronic (5) Hypertension Status: Chronic Qualifiers: Hypertension type: unspecified Qualified Code(s): I10 - Essential (primary) hypertension (6) Atrial fibrillation Status: Chronic Qualifiers: Atrial fibrillation type: unspecified Qualified Code(s): I48.91 - Unspecified atrial fibrillation Hospital course: Ms. Olvera is a 78 year old female - Time Spent with Patient Total time spent providing and/or coordinating discharge services: Date of admission: 04/21/19 22:10 Primary care physician: Abebe Cruz Jr, MD Consults: 04/21/19 21:26 Consult to Neurology [CONS] Stat Consulting Provider: [facility] Reason for Consult: TIAs with hx of Afib on Eliquis Time Notified: 21:27 Call Completed: Yes - Constitutional Vitals: Temp Pulse Resp BP Pulse Ox 98.3 F 67 17 116/69 97 04/23/19 10:59 04/23/19 10:59 04/23/19 10:59 04/23/19 10:59 04/23/19 06:57 - Patient Status Functional capacity at discharge: independent ambulation Overall status at discharge: patient is progressing back to baseline - Diet and Activity Diet: low fat, low cholesterol, low salt diet - Attending Attestation I saw evaluated and examined this patient and reviewed objective data including labs and my medical decision-making was reviewed with the Resident Physician, Elizabeth Shane. I agree with the documented findings, disposition and discharge plan as described except to any changes set forth below. We independently had [id number] contact with the patient. Patient with history of atrial fibrillation, on Eliquis for anticoagulation, hypertension, hyperlipidemia was hospitalized for possible TIA after presenting to the ER with symptoms of right hand, foot and perioral numbness. Patient has been having episodes of TIA in a crescendo pattern. Workup with head CT was negative for any acute stroke. 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 Patient also had CT angiogram of the head and neck which did not show any significant stenosis. Echocardiogram did not show any significant PFO. Neurology evaluated patient and recommended that she be switched over from Eliquis back to Coumadin but at this time patient wishes to stay on Eliquis and discuss this further with her cosmetologist apprentice before transitioning. She has been placed on pravastatin and will continue take aspirin. Time spent on discharge: 10 min
[2019-04-23 16:26] VITALS: BP 133/72
== END 2019-04-23 16:45 | disposition home or self-care (01) ==
LOC: 3BNU 18:45 → EMEROOARM 18:45 → SUATTDRO 22:10 → 3BNU 22:59
PROVIDERS: ADMIT Internal Medicine; ATTEND Internal Medicine